=== PATIENT | female | born 1935 | race Caucasian/White ===

== ENCOUNTER → 2016-06-28 | Outpatient (CLI) | payer MEDICARE ==
[~2016-06-28] MED LIST: ACET325T49 PO; ASPI-586 PO; CALC-140 PO; CALC-654 PO; LEVO100T7 PO; [UNRECOGNIZED DRUG - OTHER] PO
--- OUTSIDE RECORDS SUMMARY | 2016-06-28 12:53 | XMS REPORT | Continuity of Care Document ---
Author Author [facility] Organization [facility] Address Unknown Phone Unavailable Care Team Providers Care Charge Preparation Technician Name Role Phone HAYLEE MARTIN MD PCP Insurance Providers Payer Name Policy Number Subscriber Name Relationship [employer] [id number] Rachel Ferris 16 Self / Same As Patient Blue Cross [facility] Supp [id number] Rachel Ferris 16 Self / Same As Patient Problems No known problems or medical conditions. Medications No known medications. Social History Social History Problem Response Recorded Date/Time Recent Foreign Travel N [place] 05/30/2014 1:02pm Hospital Discharge Instructions No hospital discharge instructions. Plan of Care No plan of care. Functional Status No functional status results. Allergies, Adverse Reactions, Alerts No known allergies. Immunizations No immunization records. Vital Signs No known vital signs results. Results Laboratory Results Test Name Result Units Flags Reference Collection Date/Time Result Date/ Time Comments White Blood Count 17.5 10^3/uL H 4.3-11.0 05/30/2014 1:15pm 05/30/2014 1: 20pm Red Blood Count 4.17 10^6/uL L 4.35-5.85 05/30/2014 1:15pm 05/30/2014 1: 20pm Hemoglobin 13.8 G/DL 11.5-16.0 05/30/2014 1:15pm 05/30/2014 1:20pm Hematocrit 42 % 35-52 05/30/2014 1:15pm 05/30/2014 1:20pm Mean Corpuscular Volume 101 FL H 80-99 05/30/2014 1:15pm 05/30/2014 1: 20pm Mean Corpuscular Hemoglobin 33 PG 25-34 05/30/2014 1:15pm 05/30/2014 1: 20pm Mean Corpuscular Hemoglobin Concent 33 G/DL 32-36 05/30/2014 1:15pm 09/2014 1:20pm Red Cell Distribution Width 13.6 % 10.0-14.5 05/30/2014 1:15pm 2014 1:20pm Platelet Count 162 10^3/uL 130-400 05/30/2014 1:15pm 05/30/2014 1:20pm Mean Platelet Volume 10.6 FL H 7.4-10.4 05/30/2014 1:15pm 05/30/2014 1: 20pm Neutrophils (%) (Auto) 23 % L 42-75 05/30/2014 1:15pm 05/30/2014 1:20pm Lymphocytes (%) (Auto) 73 % H 12-44 05/30/2014 1:15pm 05/30/2014 1:20pm Monocytes (%) (Auto) 3 % 0-12 05/30/2014 1:15pm 05/30/2014 1:20pm Eosinophils (%) (Auto) 0 % 0-10 05/30/2014 1:15pm 05/30/2014 1:20pm Basophils (%) (Auto) 0 % 0-10 05/30/2014 1:15pm 05/30/2014 1:20pm Neutrophils # (Auto) 4.1 X 10^3 1.8-7.8 05/30/2014 1:15pm 05/30/2014 1: 20pm Lymphocytes # (Auto) 12.8 X 10^3 H 1.0-4.0 05/30/2014 1:15pm 05/30/2014 1 :20pm Monocytes # (Auto) 0.5 X 10^3 0.0-1.0 05/30/2014 1:15pm 05/30/2014 1: 20pm Eosinophils # (Auto) 0.1 10^3/uL 0.0-0.3 05/30/2014 1:15pm 05/30/2014 1 :20pm Basophils # (Auto) 0.0 10^3/uL 0.0-0.1 05/30/2014 1:15pm 05/30/2014 1: 20pm Sodium Level 142 MMOL/L 135-145 05/30/2014 1:15pm 05/30/2014 1:50pm Potassium Level 4.1 MMOL/L 3.6-5.0 05/30/2014 1:15pm 05/30/2014 1:50pm Chloride Level 104 MMOL/L 98-107 05/30/2014 1:15pm 05/30/2014 1:50pm Carbon Dioxide Level 28 MMOL/L 21-32 05/30/2014 1:15pm 05/30/2014 1: 50pm Blood Urea Nitrogen 22 MG/DL H 7-18 05/30/2014 1:15pm 05/30/2014 1:50pm Creatinine 1.05 MG/DL 0.60-1.30 05/30/2014 1:15pm 05/30/2014 1:50pm BUN/Creatinine Ratio 21 05/30/2014 1:15pm 05/30/2014 1:50pm Estimat Glomerular Filtration Rate 50 05/30/2014 1:15pm 05/30/2014 1:50pm GFR INTERPRETIVE DATA UNITS FOR ESTIMATED GFR (eGFR): mL/min/1.73 M2 REFERENCE RANGE FOR ESTIMATED GFR (eGFR) eGFR NORMAL eGFR >60 MODERATELY DECREASED eGFR 30-59 SEVERLY DECREASED eGFR 15-29 KIDNEY FAILURE <15 (OR DIALYSIS) Glucose Level 130 MG/DL H 70-105 05/30/2014 1:15pm 05/30/2014 1:50pm Calcium Level 9.2 MG/DL 8.5-10.1 05/30/2014 1:15pm 05/30/2014 1:50pm Total Bilirubin 0.4 MG/DL 0.1-1.0 05/30/2014 1:15pm 05/30/2014 1:50pm Alkaline Phosphatase 83 U/L 40-136 05/30/2014 1:15pm 05/30/2014 1:50pm Aspartate Amino Transf (AST/SGOT) 20 U/L 5-34 05/30/2014 1:15pm 2014 1:50pm Alanine Aminotransferase (ALT/SGPT) 17 U/L 0-55 05/30/2014 1:15pm 05/30 1:50pm Lactate Dehydrogenase 161 U/L 125-220 05/30/2014 1:15pm 05/30/2014 1: 50pm Total Protein 5.9 G/DL L 6.4-8.2 05/30/2014 1:15pm 05/30/2014 1:50pm Albumin 4.0 G/DL 3.2-4.5 05/30/2014 1:15pm 05/30/2014 1:50pm Immunoglobulin G 443 L MG/DL 672-1680 05/30/2014 1:15pm 05/31/2014 3: 23pm Immunoglobulin A 14 L MG/DL 71-263 05/30/2014 1:15pm 05/31/2014 3: 23pm Immunoglobulin M 294 H MG/DL 47-209 05/30/2014 1:15pm 05/31/2014 3: 23pm Total Protein (PEP) 5.3 L GM/DL 6.3-8.3 06/03/2014 8:48am 06/05/2014 7 :34am Protein Electrophoresis Pathologist SEE PATH REPORT 06/03/2014 8: 48am 06/05/2014 7:34am Protein Electrophoresis Note [id number] 06/03/2014 8:48am 06/07/2014 10:40am Free Arroy[place] Light Chains, Quant 5.32 MG/L 3.30-19.40 06/03/2014 8:48am 06/07/2014 10:40am Free Lambda Light Chains, Quant 27.52 H MG/L 5.71-26.30 06/03/2014 8: 48am 06/07/2014 10:40am Free [place]roy[place]/Lambda Light Chain Ratio 0.19 L RATIO 0.26-1.65 06/03/2014 8 :48am 06/07/2014 10:40am Procedures No known history of procedures. Encounters Encounter Location Date/Time Discharged Recurring Via [facility] 06/06/14 1:16pm
--- NOTE | 2016-07-01 18:56 | Diagnostic Imaging Report ---
Right breast screening mammogram. INDICATION: Screening exam. The patient has history of left mastectomy for breast cancer. COMPARISON: 06/23/2014 and other prior exams are reviewed. The current study was also evaluated with a Computer Aided Detection (CAD) system. FINDINGS: Stable central asymmetry in the RCC projection from multiple prior studies is noted. There is also stable calcification seen. There is no developing mass, architectural distortion or suspicious calcification. IMPRESSION: Stable mammographic findings. ACR BI-RADS Category 2: Benign findings. Result letter will be mailed to the patient. Note: At least 10% of breast cancer is not imaged by mammography. Dictated by: Dictated on workstation # [id number]
== END ==
LOC: RAD 12:50
PROVIDERS: ATTEND Internal Medicine Hematology & Oncology
DX: Z12.31 Encounter for screening mammogram for malignant neoplasm of breast (principal); C50.912 Malignant neoplasm of unspecified site of left female breast

== ENCOUNTER 2016-07-30 12:57 | Outpatient (RCR) | payer MEDICARE ==
--- OUTSIDE RECORDS SUMMARY | 2016-07-26 09:44 | XMS REPORT | Continuity of Care Document ---
Author Author [facility] Organization [facility] Address Unknown Phone Unavailable Care Team Providers Care Computer Game Programmer Name Role Phone HAYLEE MARTIN MD PCP Insurance Providers Payer Name Policy Number Subscriber Name Relationship [employer] [id number] Rachel Ferris 16 Self / Same As Patient Blue Cross [facility] Supp [id number] Rachel Ferris 16 Self / Same As [...] 8: 48am 06/05/2014 7:34am Protein Electrophoresis Note [id number] 06/03/2014 8:48am 06/07/2014 10:40am Free [place] Light Chains, Quant 5.32 MG/L 3.30-19.40 06/03/2014 8:48am 06/07/2014 10:40am Free Lambda Light Chains, Quant 27.52 H MG/L 5.71-26.30 06/03/2014 8: 48am 06/07/2014 10:40am Free [place]/Lambda Light Chain Ratio 0.19 L RATIO 0.26-1.65 06/03/2014 8 :48am 06/07/2014 10:40am Procedures No known history of procedures. Encounters Encounter Location Date/Time Discharged Recurring Via [facility] 06/06/14 1:16pm
[2016-07-26 09:49] LABS: BASOPHILS % (AUTO) 0 % (0-10); EOSINOPHILS # (AUTO) 0.1 10^3/uL (0.0-0.3); EOSINOPHILS % (AUTO) 1 % (0-10); LYMPHOCYTES # (AUTO) 14.1 X 10^3 (1.0-4.0); LYMPHOCYTES % (AUTO) 78 % (12-44); MEAN CORPUSCULAR HEMOGLOBIN 34 PG (25-34); MEAN CORPUSCULAR HGB CONC 34 G/DL (32-36); MEAN CORPUSCULAR VOLUME 100 FL (80-99); MEAN PLATELET VOLUME 10.6 FL (7.4-10.4); MONOCYTES # (AUTO) 0.4 X 10^3 (0.0-1.0); MONOCYTES % (AUTO) 2 % (0-12); NEUTROPHILS # (AUTO) 3.5 X 10^3 (1.8-7.8); NEUTROPHILS % (AUTO) 19 % (42-75); PLATELET COUNT 172 10^3/uL (130-400); RED BLOOD COUNT 4.36 10^6/uL (4.35-5.85); RED CELL DISTRIBUTION WIDTH 13.3 % (10.0-14.5); WHITE BLOOD COUNT 18.1 10^3/uL (4.3-11.0)
[2016-07-26 10:05] LABS: BILIRUBIN,TOTAL 0.4 MG/DL (0.1-1.0); CALCIUM 8.6 MG/DL (8.5-10.1); CREATININE SERUM 0.92 MG/DL (0.60-1.30); POTASSIUM 4.9 MMOL/L (3.6-5.0); TOTAL PROTEIN 5.8 G/DL (6.4-8.2)
[2016-07-27 06:56] LABS: IMMUNOGLOBULIN IGA 10 mg/dL (71-263); IMMUNOGLOBULIN IGG 415 mg/dL (672-1680)
[2016-07-29 08:00] LABS: IMMUNOGLOBULIN IGM <10 mg/dL (47-209)
== END 2016-10-24 | disposition home or self-care (01) ==
LOC: ONC 12:57
PROVIDERS: ATTEND Internal Medicine Hematology & Oncology
DX: C91.10 Chronic lymphocytic leukemia of B-cell type not having achieved remission (principal); Z85.3 Personal history of malignant neoplasm of breast; E03.9 Hypothyroidism, unspecified; M81.0 Age-related osteoporosis without current pathological fracture; Z79.899 Other long term (current) drug therapy
CPT/HCPCS: 36415; 80053; 82784; 83615; 85025; 99213

== ENCOUNTER → 2017-01-31 | Outpatient (CLI) | payer MEDICARE | LOC: LAB 10:53 | PROVIDERS: ATTEND Family Medicine | DX: E03.9 Hypothyroidism, unspecified (principal); Z79.899 Other long term (current) drug therapy | CPT/HCPCS: 82306 ==

== ENCOUNTER 2017-02-12 09:15 | Outpatient (RCR) | payer MEDICARE ==
[2017-01-31 11:12] LABS: EOSINOPHILS % (AUTO) 0 % (0-10); LYMPHOCYTES % (AUTO) 76 % (12-44); MEAN CORPUSCULAR HEMOGLOBIN 34 PG (25-34); MEAN CORPUSCULAR HGB CONC 35 G/DL (32-36); MEAN CORPUSCULAR VOLUME 98 FL (80-99); MEAN PLATELET VOLUME 10.9 FL (7.4-10.4); MONOCYTES % (AUTO) 3 % (0-12); NEUTROPHILS % (AUTO) 21 % (42-75); PLATELET COUNT 159 10^3/uL (130-400); RED BLOOD COUNT 4.19 10^6/uL (4.35-5.85); RED CELL DISTRIBUTION WIDTH 13.2 % (10.0-14.5); WHITE BLOOD COUNT 18.2 10^3/uL (4.3-11.0)
[2017-01-31 11:13] LABS: BASOPHILS % (AUTO) 0 % (0-10); EOSINOPHILS # (AUTO) 0.1 10^3/uL (0.0-0.3); LYMPHOCYTES # (AUTO) 13.8 X 10^3 (1.0-4.0); MONOCYTES # (AUTO) 0.6 X 10^3 (0.0-1.0); NEUTROPHILS # (AUTO) 3.7 X 10^3 (1.8-7.8)
[2017-01-31 11:38] LABS: BILIRUBIN,TOTAL 0.7 MG/DL (0.1-1.0); CALCIUM 8.7 MG/DL (8.5-10.1); CREATININE SERUM 0.99 MG/DL (0.60-1.30); POTASSIUM 4.5 MMOL/L (3.6-5.0); TOTAL PROTEIN 5.7 GM/DL (6.4-8.2)
[2017-02-01 02:29] LABS: IMMUNOGLOBULIN IGA 11 mg/dL (71-263); IMMUNOGLOBULIN IGG 397 mg/dL (672-1680)
[2017-02-03 07:59] LABS: IMMUNOGLOBULIN IGM 21 mg/dL (47-209)
== END 2017-02-22 | disposition home or self-care (01) ==
LOC: ONC 09:15
PROVIDERS: ATTEND Internal Medicine Hematology & Oncology
DX: C91.10 Chronic lymphocytic leukemia of B-cell type not having achieved remission (principal); Z85.3 Personal history of malignant neoplasm of breast; E03.9 Hypothyroidism, unspecified; M81.0 Age-related osteoporosis without current pathological fracture; Z79.899 Other long term (current) drug therapy
CPT/HCPCS: 36415; 80053; 82784; 83615; 85025

== ENCOUNTER → 2017-07-10 | Outpatient (CLI) | payer MEDICARE ==
--- NOTE | 2017-07-10 12:57 | Diagnostic Imaging Report ---
INDICATION: Routine screening. COMPARISON: Comparison is made with prior mammogram from 06/28/2016 and 06/27/2015. The current study was also evaluated with a Computer Aided Detection (CAD) system. FINDINGS: Scattered fibroglandular densities in the right breast are noted. Previously noted focal nodular density in the central right breast on the CC view appears stable over several years. No new mass or malignant appearing microcalcifications are seen. There are some mildly prominent lymph nodes in the right axilla, indeterminate. These were not definitely seen on prior mammograms. IMPRESSION: No suspicious abnormality is seen apart from some mildly prominent lymph nodes in the right axilla. Right axillary ultrasound is recommended for further evaluation. ACR BI-RADS Category 0: Incomplete. (Needs additional imaging evaluation). Result letter will be mailed to the patient. Note: At least 10% of breast cancer is not imaged by mammography. Dictated by: Dictated on workstation # [id number]
== END ==
LOC: RAD 09:22
PROVIDERS: ATTEND Internal Medicine Hematology & Oncology
DX: Z12.31 Encounter for screening mammogram for malignant neoplasm of breast (principal); Z85.3 Personal history of malignant neoplasm of breast

== ENCOUNTER → 2017-07-25 | Outpatient (CLI) | payer MEDICARE ==
--- NOTE | 2017-07-25 14:54 | Diagnostic Imaging Report ---
INDICATION: Prominent right axillary lymph nodes noted on a recent mammogram. This study is performed for further evaluation. COMPARISON: Screening mammogram from 07/10/2017. FINDINGS: Sonographic interrogation of the right axilla was performed. Three lymph nodes are identified. The largest lymph node measures 2.5 x 1.1 x 0.6 cm. This appears to be primarily fatty and does demonstrate a thin overlying cortex. A second lymph node measures 1.3 x 0.7 x 1.3 cm. The other lymph node is 1.2 x 0.6 x 1.2 cm. No other abnormalities are identified. IMPRESSION: Right axillary lymph nodes which contain a fatty aracelis and thin overlying cortex. No definite suspicious abnormality is identified. ACR BI-RADS Category 2: Benign findings. Dictated by: Dictated on workstation # [id number]
== END ==
LOC: RAD 10:07
PROVIDERS: ATTEND Internal Medicine Hematology & Oncology
DX: R92.8 Other abnormal and inconclusive findings on diagnostic imaging of breast (principal)

== ENCOUNTER → 2017-08-14 | Outpatient (CLI) | payer MEDICARE ==
[2017-08-14 09:48] LABS: FREE T4 (FREE THYROXINE) 1.21 NG/DL (0.70-1.48)
== END ==
LOC: LAB 08:52
PROVIDERS: ATTEND Family Medicine
DX: E03.9 Hypothyroidism, unspecified (principal); Z79.899 Other long term (current) drug therapy
CPT/HCPCS: 36415; 80061; 84439; 84443

== ENCOUNTER 2017-08-21 08:51 | Outpatient (RCR) | payer MEDICARE ==
[2017-08-14 09:05] LABS: BASOPHILS % (AUTO) 0 % (0-10); EOSINOPHILS # (AUTO) 0.1 10^3/uL (0.0-0.3); EOSINOPHILS % (AUTO) 1 % (0-10); HEMATOCRIT 44 % (35-52); HEMOGLOBIN 14.7 G/DL (11.5-16.0); LYMPHOCYTES # (AUTO) 12.8 X 10^3 (1.0-4.0); LYMPHOCYTES % (AUTO) 81 % (12-44); MEAN CORPUSCULAR HEMOGLOBIN 34 PG (25-34); MEAN CORPUSCULAR HGB CONC 34 G/DL (32-36); MEAN CORPUSCULAR VOLUME 101 FL (80-99); MEAN PLATELET VOLUME 10.9 FL (7.4-10.4); MONOCYTES # (AUTO) 0.2 X 10^3 (0.0-1.0); MONOCYTES % (AUTO) 1 % (0-12); NEUTROPHILS # (AUTO) 2.6 X 10^3 (1.8-7.8); NEUTROPHILS % (AUTO) 17 % (42-75); PLATELET COUNT 138 10^3/uL (130-400); RED BLOOD COUNT 4.32 10^6/uL (4.35-5.85); RED CELL DISTRIBUTION WIDTH 13.3 % (10.0-14.5); WHITE BLOOD COUNT 15.8 10^3/uL (4.3-11.0)
[2017-08-14 09:25] LABS: BILIRUBIN,TOTAL 0.9 MG/DL (0.1-1.0); CALCIUM 9.1 MG/DL (8.5-10.1); CREATININE SERUM 1.05 MG/DL (0.60-1.30); POTASSIUM 4.4 MMOL/L (3.6-5.0); TOTAL PROTEIN 5.6 GM/DL (6.4-8.2)
== END 2017-11-12 | disposition home or self-care (01) ==
LOC: ONC 08:51
PROVIDERS: ATTEND Internal Medicine Hematology & Oncology
DX: C91.10 Chronic lymphocytic leukemia of B-cell type not having achieved remission (principal); D80.1 Nonfamilial hypogammaglobulinemia; Z85.3 Personal history of malignant neoplasm of breast; E03.9 Hypothyroidism, unspecified; M81.0 Age-related osteoporosis without current pathological fracture; Z79.899 Other long term (current) drug therapy
CPT/HCPCS: 80053; 82784; 85025; 99213

== ENCOUNTER → 2018-02-12 | Outpatient (CLI) | payer MEDICARE ==
[2018-02-12 15:04] LABS: FREE T4 (FREE THYROXINE) 1.18 NG/DL (0.70-1.48)
== END ==
LOC: LAB 13:43
PROVIDERS: ATTEND Family Medicine
DX: E03.9 Hypothyroidism, unspecified (principal)
CPT/HCPCS: 36415; 84439; 84443

== ENCOUNTER 2018-02-19 08:50 | Outpatient (RCR) | payer MEDICARE ==
[2018-02-12 14:00] LABS: BASOPHILS % (AUTO) 0 % (0-10); EOSINOPHILS # (AUTO) 0.1 10^3/uL (0.0-0.3); EOSINOPHILS % (AUTO) 1 % (0-10); HEMATOCRIT 40 % (35-52); HEMOGLOBIN 13.8 G/DL (11.5-16.0); LYMPHOCYTES # (AUTO) 13.9 X 10^3 (1.0-4.0); LYMPHOCYTES % (AUTO) 72 % (12-44); MEAN CORPUSCULAR HEMOGLOBIN 34 PG (25-34); MEAN CORPUSCULAR HGB CONC 35 G/DL (32-36); MEAN CORPUSCULAR VOLUME 100 FL (80-99); MEAN PLATELET VOLUME 11.1 FL (7.4-10.4); MONOCYTES # (AUTO) 0.5 X 10^3 (0.0-1.0); MONOCYTES % (AUTO) 2 % (0-12); NEUTROPHILS # (AUTO) 4.8 X 10^3 (1.8-7.8); NEUTROPHILS % (AUTO) 25 % (42-75); PLATELET COUNT 158 10^3/uL (130-400); RED BLOOD COUNT 4.02 10^6/uL (4.35-5.85); RED CELL DISTRIBUTION WIDTH 13.4 % (10.0-14.5); WHITE BLOOD COUNT 19.3 10^3/uL (4.3-11.0)
[2018-02-12 14:44] LABS: BILIRUBIN,TOTAL 0.6 MG/DL (0.1-1.0); CALCIUM 9.3 MG/DL (8.5-10.1); CREATININE SERUM 1.23 MG/DL (0.60-1.30); TOTAL PROTEIN 5.5 GM/DL (6.4-8.2)
== END 2018-02-22 | disposition home or self-care (01) ==
LOC: ONC 08:50
PROVIDERS: ATTEND Internal Medicine Hematology & Oncology
DX: C91.10 Chronic lymphocytic leukemia of B-cell type not having achieved remission (principal); Z85.3 Personal history of malignant neoplasm of breast; E03.9 Hypothyroidism, unspecified; M81.0 Age-related osteoporosis without current pathological fracture; Z79.899 Other long term (current) drug therapy
CPT/HCPCS: 36415; 80053; 82784; 85025; 99213

== ENCOUNTER → 2018-04-06 | Outpatient (CLI) | payer MEDICARE ==
--- NOTE | 2018-04-06 10:31 | Diagnostic Imaging Report ---
INDICATION: Left hip discomfort for 4 weeks. Time of exam 10:33 a.m. FINDINGS: Two views of the left hip demonstrate normal femoral acetabular alignment. The joint spaces are well-maintained. The femoral head and neck are intact. No fractures are seen. IMPRESSION: No acute bony abnormality is detected. Dictated by: Dictated on workstation # [id number]
== END ==
LOC: RAD 09:58
PROVIDERS: ATTEND Family Medicine
DX: M25.552 Pain in left hip (principal)
CPT/HCPCS: 73502

== ENCOUNTER → 2018-04-30 | Outpatient (CLI) | payer MEDICARE ==
--- NOTE | 2018-04-30 17:05 | Diagnostic Imaging Report ---
EXAMINATION: Thoracic spine. INDICATION: Back pain. FINDINGS: AP, lateral, and swimmer's views were obtained. The previous MRI thoracic spine exam of 10/27/2015 noted compression fractures of T4 and T11. Those fractures are again evident and no different. In the interval since the previous exam, however, a mild 10-20% compression deformity of the vertebral body of T7 has developed. The age of this injury is indeterminate and this could be acute or subacute in nature. If further imaging is desired, then a repeat MRI lumbar spine exam should be obtained. There is no acute bony abnormality appreciated otherwise. 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 There is no sign of a paraspinal mass. IMPRESSION: 1. In the interval since the prior study, a mild compression deformity of T7 has developed. The age of this injury is indeterminate, but this could be acute or subacute in nature. Recommendations as above. 2. There is no acute bony abnormality noted otherwise. The compression fractures of T4 and T11 seen previously appear stable. Dictated by: Dictated on workstation # [id number]
--- NOTE | 2018-04-30 17:21 | Diagnostic Imaging Report ---
EXAMINATION: Lumbar spine. INDICATION: Back pain. FINDINGS: AP and lateral views were obtained. The prior exam of 10/24/2015 noted compression fractures of every lumbar vertebral body except for L4 and L5. On this study, the compression deformities of L1, L2, and L3 seem similar to the prior exam. However, there may be slightly greater loss of height of the vertebral body of L4. This could be secondary to an acute/subacute compression deformity. I would recommend that MRI be performed for further study. The L5 vertebral body seems stable. The degenerative disc disease at the L4-L5 and L5-S1 levels noted on the prior exam does not appear to have progressed. There is no sign of a paraspinal mass. There is moderate sclerosis of the sacroiliac joints. IMPRESSION: 1. In the interval since the prior exam, there has been a slight loss of height of the vertebral body of L4. This could be related to an acute/subacute compression fracture. Recommendations as above. 2. The overall appearance of the lumbar spine is otherwise stable. Dictated by: Dictated on workstation # [id number]
== END ==
LOC: RAD 13:35
PROVIDERS: ATTEND Nurse Practitioner Family
DX: S22.040A Wedge compression fracture of fourth thoracic vertebra, initial encounter for closed fracture (principal); S22.080A Wedge compression fracture of T11-T12 vertebra, initial encounter for closed fracture; M43.8X4 Other specified deforming dorsopathies, thoracic region; M54.5 Low back pain
CPT/HCPCS: 72072; 72100

== ENCOUNTER → 2018-05-05 | Outpatient (CLI) | payer MEDICARE ==
--- NOTE | 2018-05-05 14:42 | Diagnostic Imaging Report ---
EXAMINATION: MRI thoracic spine without contrast. INDICATION: Back pain. TECHNIQUE: Multiplanar images utilizing both T1 and T2-weighted sequences were obtained. FINDINGS: The previous MRI thoracic spine exam performed on 10/27/2015 noted long-standing compression deformities of T4 and T11 as well as a subacute compression deformity of the inferior endplate of L1. Those compression deformities are again evident and do not seem to have changed significantly. The plain film examination of the thoracic spine performed on 04/30/2018 did suggest a mild compression deformity of T7. On this study, there is a 40-50% loss of height of the T7 vertebral body when compared to the prior exam and there is diffusely abnormal signal throughout the vertebral body. This appearance would be consistent with a subacute compression fracture. There is no sign of a retropulsed fragment at this level and there does not appear to be any significant central stenosis. The degenerative disc and bony disease involving the thoracic spine seen on the prior study does not appear to have progressed. There is no new area of high-grade central stenosis. There is no abnormal signal arising from the cord. There is no paraspinal mass visualized. The lungs where imaged are generally clear. IMPRESSION: 1. In the interval since the prior study, a 40-50% subacute compression fracture of T7 has developed. There is no acute bony abnormality noted otherwise. 2. The compression deformities involving T4 and T11 seen previously appear stable. The L1 compression fracture is also unchanged. MRI of the lumbar spine is pending for further study. 3. There is degenerative disc and bony disease throughout the thoracic spine, but there is no evidence for a high-grade central stenosis or neuroforaminal narrowing. 4. These results were called to Sisi Cooney APRN. Dictated by: Dictated on workstation # [id number]
--- NOTE | 2018-05-05 16:29 | Diagnostic Imaging Report ---
PROCEDURE: MRI lumbar spine. TECHNIQUE: Multiplanar, multisequence MRI of the lumbar spine was performed without contrast. INDICATION: Back pain. FINDINGS: The previous MRI of the lumbar spine exam of 10/27/2015 noted subacute compression fractures of L1 and L2. There was also mild compression deformity of L3. The plain film exam of 04/30/2018 also raised the question of a slight loss of height of the vertebral body of L4. The age of this mild compression fracture is indeterminate however. On this study, there is a mild loss of height of the L4 vertebral body when compared to the previous MRI in 2016. However, there is no abnormal signal arising from L4 to suggest that this injury is acute or subacute in nature. The remainder of the lumbar spine is unremarkable for an acute injury as well. However the axial images do show an irregular area of diminished signal extending through the sacral promontory on the left. I do suspect that this represents a fracture. This could be related to an insufficiency type injury. The previous MRI of the lumbar spine exam did note trefoil stenosis at L4-5 with narrowing of the neural foramen bilaterally at this level. Those findings are again evident and do not seem to have progress. There is also trefoil stenosis but to a lesser degree at L3-4. There is neural foraminal narrowing at this level as well. This level also seems similar to the prior exam. There is also trefoil stenosis at L2-3 with mild neural foraminal narrowing bilaterally. There is no evidence for spinal stenosis at L1-2 or L5-S1. There is narrowing of the neural foramen bilaterally at L5, particularly on the left. There is no abnormal signal arising from the cord itself. There is no sign of a paraspinal mass. IMPRESSION: 1. There are long-standing compression deformities involving L1, L2, L3 and L4. There is no acute bony abnormality of the lumbar spine identified however. 2. There does appear to be a fracture of the left sacral promontory. This may represent an insufficiency fracture. Sacroplasty should be considered for further evaluation. 3. The degenerative disc, ligamentous and bony disease throughout the lumbar spine seen previously has not progressed significantly. 4. The results were discussed with Sisi Cooney APRN. Dictated by: Dictated on workstation # [id number]
== END ==
LOC: RAD 13:05
PROVIDERS: ATTEND Nurse Practitioner Family
DX: S22.060A Wedge compression fracture of T7-T8 vertebra, initial encounter for closed fracture (principal); S32.010A Wedge compression fracture of first lumbar vertebra, initial encounter for closed fracture; M51.34 Other intervertebral disc degeneration, thoracic region; M51.36 Other intervertebral disc degeneration, lumbar region; M89.9 Disorder of bone, unspecified
CPT/HCPCS: 72146; 72148

== ENCOUNTER → 2018-05-28 | Outpatient (CLI) | payer MEDICARE ==
--- NOTE | 2018-05-28 14:58 | Diagnostic Imaging Report ---
PROCEDURE: MRI lumbar spine. TECHNIQUE: Multiplanar, multisequence MRI of the lumbar spine was performed without contrast. INDICATION: Low back pain. COMPARISON: Lumbar spine MRI without contrast 05/05/2018. FINDINGS: There are five lumbar type vertebral bodies for the purposes of this report. Grade 1 retrolisthesis of L1 on L2. Alignment is otherwise unremarkable. Moderate to advanced diffuse degenerative endplate changes. This results in concave height loss at the inferior endplate of L1 without edema. There is also anterior wedging of T11. Bone marrow signal is otherwise unremarkable. No abnormal signal in the conus which terminates at L1-L2. Normal morphology of the cauda equina. The visualized abdominal and pelvic contents are unremarkable. L1-L2: Posterior disc osteophyte complex combines with ligamentous hypertrophy to result in moderate spinal canal and bilateral lateral recess narrowing. There is advanced bilateral neural foraminal narrowing. L2-L3: Small broad-based disc bulge and ligamentous hypertrophy results in moderate spinal canal narrowing. There is moderate bilateral neural foraminal narrowing. L3-L4: Posterior disc osteophyte complex, ligamentous hypertrophy and facet arthropathy results in moderate spinal canal narrowing. There is advanced bilateral neural foraminal narrowing. L4-L5: Broad-based disc bulge, ligamentous hypertrophy and facet arthropathy result in moderate spinal canal and bilateral lateral recess narrowing. There is advanced right and moderate left neural foraminal narrowing. L5-S1: No substantial spinal canal narrowing. There is advanced left and moderate right neural foraminal narrowing. IMPRESSION: 1. Diffuse spondylotic changes result in multilevel moderate spinal canal narrowing including L1-L2, L2-L3, L3-L4 and L4-L5. 2. Diffuse moderate and advanced neural foraminal narrowing detailed above level by level. 3. No acute osseous findings. Dictated by: Dictated on workstation # [id number]
== END ==
LOC: RAD 13:46
PROVIDERS: ATTEND Orthopaedic Surgery Orthopaedic Surgery of the Spine
DX: M47.816 Spondylosis without myelopathy or radiculopathy, lumbar region (principal); M48.07 Spinal stenosis, lumbosacral region; M51.26 Other intervertebral disc displacement, lumbar region; M46.86 Other specified inflammatory spondylopathies, lumbar region; M25.78 Osteophyte, vertebrae; M43.16 Spondylolisthesis, lumbar region; M51.36 Other intervertebral disc degeneration, lumbar region
CPT/HCPCS: 72148

== ENCOUNTER → 2018-07-15 | Outpatient (CLI) | payer MEDICARE ==
--- NOTE | 2018-07-15 13:55 | Diagnostic Imaging Report ---
INDICATION: Left breast carcinoma. CORRELATION is made with prior mammogram from 07/10/2017. TECHNIQUE: Unilateral right 2-D and 3-D diagnostic mammography was performed with CAD. FINDINGS: Scattered fibroglandular densities in the right breast are noted. Circumscribed benign-appearing nodule in the upper central right breast appears stable. No new mass or malignant-appearing micro-calcifications are seen. There are benign calcifications present. The right axilla is unremarkable. IMPRESSION: BI-RADS category 2. No mammographic features suspicious for malignancy are identified. ACR BI-RADS Category 2: Benign findings. Result letter will be mailed to the patient. Note: At least 10% of breast cancer is not imaged by mammography. Dictated by: Dictated on workstation # [id number]
== END ==
LOC: RAD 12:46
PROVIDERS: ATTEND Internal Medicine Hematology & Oncology
DX: C50.812 Malignant neoplasm of overlapping sites of left female breast (principal)

== ENCOUNTER 2018-07-16 13:27 | Outpatient (RCR) | payer MEDICARE | END 2018-07-16 13:40 | disposition home or self-care (01) | PROVIDERS: ATTEND Orthopaedic Surgery Orthopaedic Surgery of the Spine | DX: M54.5 Low back pain (principal) ==

== ENCOUNTER → 2019-01-28 | Outpatient (CLI) | payer MEDICARE ==
[2019-01-28 11:11] LABS: ALBUMIN 4.1 GM/DL (3.2-4.5); BILIRUBIN,TOTAL 0.6 MG/DL (0.1-1.0); CALCIUM 9.2 MG/DL (8.5-10.1); CREATININE SERUM 1.09 MG/DL (0.60-1.30); POTASSIUM 4.4 MMOL/L (3.6-5.0)
[2019-01-28 11:32] LABS: FREE T4 (FREE THYROXINE) 1.25 NG/DL (0.70-1.48)
== END ==
LOC: LAB 10:33
PROVIDERS: ATTEND Family Medicine
DX: Z01.89 Encounter for other specified special examinations (principal)
CPT/HCPCS: 36415; 80053; 82306; 84439; 84443

== ENCOUNTER 2019-02-04 08:49 | Outpatient (RCR) | payer MEDICARE ==
[2019-01-28 10:52] LABS: BASOPHILS % (AUTO) 0 % (0-10); EOSINOPHILS # (AUTO) 0.1 10^3/uL (0.0-0.3); EOSINOPHILS % (AUTO) 0 % (0-10); HEMATOCRIT 43 % (35-52); HEMOGLOBIN 14.1 G/DL (11.5-16.0); LYMPHOCYTES # (AUTO) 13.3 X 10^3 (1.0-4.0); LYMPHOCYTES % (AUTO) 76 % (12-44); MEAN CORPUSCULAR HEMOGLOBIN 34 PG (25-34); MEAN CORPUSCULAR HGB CONC 33 G/DL (32-36); MEAN CORPUSCULAR VOLUME 102 FL (80-99); MEAN PLATELET VOLUME 10.7 FL (7.4-10.4); MONOCYTES # (AUTO) 0.3 X 10^3 (0.0-1.0); MONOCYTES % (AUTO) 1 % (0-12); NEUTROPHILS # (AUTO) 3.8 X 10^3 (1.8-7.8); NEUTROPHILS % (AUTO) 22 % (42-75); PLATELET COUNT 176 10^3/uL (130-400); RED CELL DISTRIBUTION WIDTH 13.8 % (10.0-14.5); WHITE BLOOD COUNT 17.5 10^3/uL (4.3-11.0)
[2019-01-28 11:13] LABS: ALBUMIN 4.1 GM/DL (3.2-4.5); BILIRUBIN,TOTAL 0.6 MG/DL (0.1-1.0); CALCIUM 9.1 MG/DL (8.5-10.1); CREATININE SERUM 1.07 MG/DL (0.60-1.30); POTASSIUM 4.4 MMOL/L (3.6-5.0); TOTAL PROTEIN 5.9 GM/DL (6.4-8.2)
== END 2019-04-28 | disposition home or self-care (01) ==
LOC: ONC 08:49
PROVIDERS: ATTEND Internal Medicine Hematology & Oncology
DX: C91.10 Chronic lymphocytic leukemia of B-cell type not having achieved remission (principal); Z85.3 Personal history of malignant neoplasm of breast; E03.9 Hypothyroidism, unspecified; M81.0 Age-related osteoporosis without current pathological fracture; Z79.899 Other long term (current) drug therapy
CPT/HCPCS: 36415; 80053; 82784; 85025; 99213

== ENCOUNTER → 2019-07-15 | Outpatient (CLI) | payer MEDICARE ==
--- NOTE | 2019-07-16 11:38 | Diagnostic Imaging Report ---
EXAM: Diagnostic right mammogram INDICATION: Carcinoma of the left breast COMPARISON: This study was compared to the prior exams of 07/15/2018, 07/10/2017 and 06/28/2016. There are no current complaints. The fibroglandular tissue in the right breast is heterogeneously dense. This does limit the sensitivity of this exam. The small benign-appearing nodular density in the midportion of the breast seen in the craniocaudal view of the previous exams is again evident and no different. This finding is difficult to appreciate on the MLO view. When compared to the previous studies, there does not appear to have been any significant change. There are still a few prominent lymph nodes visible in the right axilla. There is no primary or secondary sign of malignancy noted. IMPRESSION: There is no evidence for malignancy. ACR category 1 ACR BI-RADS Category 1: Negative. Result letter will be mailed to the patient. Note: At least 10% of breast cancer is not imaged by mammography. Dictated by: Dictated on workstation # [id number]
== END ==
LOC: RAD 09:20
PROVIDERS: ATTEND Internal Medicine Hematology & Oncology
DX: C50.812 Malignant neoplasm of overlapping sites of left female breast (principal)

== ENCOUNTER 2019-08-05 09:00 | Outpatient (RCR) | payer MEDICARE ==
[2019-07-29 09:55] LABS: BASOPHILS % (AUTO) 0 % (0-10); EOSINOPHILS # (AUTO) 0.1 10^3/uL (0.0-0.3); EOSINOPHILS % (AUTO) 1 % (0-10); HEMATOCRIT 42 % (35-52); HEMOGLOBIN 13.7 G/DL (11.5-16.0); LYMPHOCYTES # (AUTO) 10.3 X 10^3 (1.0-4.0); LYMPHOCYTES % (AUTO) 77 % (12-44); MEAN CORPUSCULAR HEMOGLOBIN 34 PG (25-34); MEAN CORPUSCULAR HGB CONC 33 G/DL (32-36); MEAN CORPUSCULAR VOLUME 103 FL (80-99); MEAN PLATELET VOLUME 11.3 FL (7.4-10.4); MONOCYTES # (AUTO) 0.3 X 10^3 (0.0-1.0); MONOCYTES % (AUTO) 2 % (0-12); NEUTROPHILS # (AUTO) 2.7 X 10^3 (1.8-7.8); NEUTROPHILS % (AUTO) 20 % (42-75); PLATELET COUNT 134 10^3/uL (130-400); RED CELL DISTRIBUTION WIDTH 13.5 % (10.0-14.5); WHITE BLOOD COUNT 13.4 10^3/uL (4.3-11.0)
[2019-07-29 10:16] LABS: ALBUMIN 3.7 GM/DL (3.2-4.5); BILIRUBIN,TOTAL 0.5 MG/DL (0.1-1.0); CALCIUM 8.6 MG/DL (8.5-10.1); CREATININE SERUM 1.01 MG/DL (0.60-1.30); TOTAL PROTEIN 5.3 GM/DL (6.4-8.2)
== END 2019-10-27 | disposition home or self-care (01) ==
LOC: ONC 09:00
PROVIDERS: ATTEND Internal Medicine Hematology & Oncology
DX: C91.10 Chronic lymphocytic leukemia of B-cell type not having achieved remission (principal); C50.812 Malignant neoplasm of overlapping sites of left female breast; D83.8 Other common variable immunodeficiencies; M81.0 Age-related osteoporosis without current pathological fracture; E03.9 Hypothyroidism, unspecified; D80.1 Nonfamilial hypogammaglobulinemia; Z98.890 Other specified postprocedural states
CPT/HCPCS: 80053; 82784; 85025; 99213

== ENCOUNTER → 2019-11-16 | Outpatient (CLI) | payer MEDICARE ==
--- NOTE | 2019-11-16 14:06 | Diagnostic Imaging Report ---
INDICATION: Postmenopausal female. COMPARISON: 01/08/2002. FINDINGS: AP Spine L1-L4: [BMD (g/cm2): 0.894] [T-Score: -2.6] [Z-Score: -0.4] [BMD Previous: 0.928] [BMD % Change: -3.7] LT Hip Neck: [BMD (g/cm2): 0.682] [T-Score: -2.6] [Z-Score: 0.0] LT Hip Total: [BMD (g/cm2):0.625] [T-Score:-3.0] [Z-Score: -0.5] [BMD Previous: 0.774] [BMD % Change: -11.9] RT Hip Neck: [BMD (g/cm2):NA] [T-Score:NA] [Z-Score:NA] RT Hip Total: [BMD (g/cm2):NA] [T-score:NA] [Z-Score:NA] [BMD Previous:NA] [BMD % Change:NA] World Health Organization criteria for BMD interpretation classify patients as Normal (T-score at or above -1.0), Osteopenic (T-score between -1.0 and -2.5) or Osteoporotic (T-score at or below -2.5). LIMITATIONS AND MODIFICATION: The right hip was not evaluated due to hardware. FRACTURE RISK (FRAX SCORE): The ten year probability of (%): Major Osteoporotic Fracture: [NA] Hip Fracture: [NA] IMPRESSION: 1. Osteoporosis. 2. Bone mineral density has decreased by a statistically significant amount, as detailed above. 3. See below National Osteoporosis Foundation guidelines on when to potentially initiate pharmacologic therapy. Based on the National Osteoporosis Foundation Guidelines, pharmacologic treatment should be initiated in any of the following, unless clinical conditions suggest otherwise: * Any patient with prior fragility fracture of the hip or vertebrae. A spine fracture indicates 5X risk for subsequent spine fracture and 2X risk for subsequent hip fracture. * Osteoporosis (T-score <-2.5). * Postmenopausal women and men age 50 and older with low bone mass/osteopenia (T-score between -1.0 and -2.5) by DXA and 10-year major osteoporotic fracture greater than 20% or a 10-year probability of hip fracture greater than 3%. These fracture risks are supplied above in the FRAX score, if applicable. * Clinician judgement and/or patient preferences may indicate treatment for people with 10-year fracture probabilities above or below these levels. Dictated by: Dictated on workstation # [id number]
== END ==
LOC: RAD 08:59
PROVIDERS: ATTEND Family Medicine
DX: M81.0 Age-related osteoporosis without current pathological fracture (principal); Z78.0 Asymptomatic menopausal state
CPT/HCPCS: 77080

== ENCOUNTER 2020-02-10 08:57 | Outpatient (RCR) | payer MEDICARE ==
[2020-02-03 09:31] LABS: BASOPHILS % (AUTO) 0 % (0-10); EOSINOPHILS # (AUTO) 0.1 10^3/uL (0.0-0.3); EOSINOPHILS % (AUTO) 0 % (0-10); HEMATOCRIT 41 % (35-52); HEMOGLOBIN 13.7 G/DL (11.5-16.0); LYMPHOCYTES % (AUTO) 77 % (12-44); MEAN CORPUSCULAR HEMOGLOBIN 35 PG (25-34); MEAN CORPUSCULAR HGB CONC 33 G/DL (32-36); MEAN CORPUSCULAR VOLUME 104 FL (80-99); MEAN PLATELET VOLUME 10.8 FL (7.4-10.4); MONOCYTES # (AUTO) 0.3 X 10^3 (0.0-1.0); MONOCYTES % (AUTO) 2 % (0-12); NEUTROPHILS % (AUTO) 21 % (42-75); PLATELET COUNT 138 10^3/uL (130-400); WHITE BLOOD COUNT 14.3 10^3/uL (4.3-11.0)
[2020-02-03 09:50] LABS: ALBUMIN 3.7 GM/DL (3.2-4.5); BILIRUBIN,TOTAL 0.6 MG/DL (0.1-1.0); CALCIUM 8.5 MG/DL (8.5-10.1); CREATININE SERUM 1.13 MG/DL (0.60-1.30); POTASSIUM 4.7 MMOL/L (3.6-5.0); TOTAL PROTEIN 5.4 GM/DL (6.4-8.2)
== END 2020-05-03 | disposition home or self-care (01) ==
LOC: ONC 08:57
PROVIDERS: ATTEND Internal Medicine Hematology & Oncology
DX: C50.812 Malignant neoplasm of overlapping sites of left female breast (principal); C91.10 Chronic lymphocytic leukemia of B-cell type not having achieved remission; D83.8 Other common variable immunodeficiencies; E03.8 Other specified hypothyroidism; M81.0 Age-related osteoporosis without current pathological fracture
CPT/HCPCS: 80053; 82784; 85025; 99213

== ENCOUNTER → 2020-06-30 | Outpatient (CLI) | payer MEDICARE ==
--- NOTE | 2020-06-30 13:11 | Diagnostic Imaging Report ---
INDICATION: Routine screening. COMPARISON is made with prior mammograms from 07/15/2019 and 07/15/2018. Unilateral right 2-D and 3-D screening mammography was performed with CAD. Scattered fibroglandular densities in the right breast are noted. A nodular density noted in the central right breast does appear to be slightly smaller when compared with prior exam, likely owing to diminution of a cyst. No new mass or malignant appearing microcalcifications are seen. There are benign calcifications in the right breast. Right axilla is unremarkable. IMPRESSION: BI-RADS Category 2 No mammographic features suspicious for malignancy are identified. ACR BI-RADS Category 2: Benign findings. Result letter will be mailed to the patient. Note: At least 10% of breast cancer is not imaged by mammography. Dictated by: Dictated on workstation # [id number]
== END ==
LOC: RAD 09:34
PROVIDERS: ATTEND Nurse Practitioner Family
DX: Z12.31 Encounter for screening mammogram for malignant neoplasm of breast (principal)
CPT/HCPCS: 77063

== ENCOUNTER 2020-07-27 08:53 | Outpatient (RCR) | payer MEDICARE ==
[2020-07-20 09:29] LABS: BASOPHILS % (AUTO) 0 % (0-10); EOSINOPHILS # (AUTO) 0.1 10^3/uL (0.0-0.3); EOSINOPHILS % (AUTO) 1 % (0-10); HEMATOCRIT 40 % (35-52); HEMOGLOBIN 13.3 g/dL (11.5-16.0); LYMPHOCYTES # (AUTO) 12.6 10^3/uL (1.0-4.0); LYMPHOCYTES % (AUTO) 80 % (12-44); MEAN CORPUSCULAR HEMOGLOBIN 35 pg (25-34); MEAN CORPUSCULAR HGB CONC 33 g/dL (32-36); MEAN CORPUSCULAR VOLUME 106 fL (80-99); MEAN PLATELET VOLUME 11.1 fL (9.0-12.2); MONOCYTES # (AUTO) 0.3 10^3/uL (0.0-1.0); MONOCYTES % (AUTO) 2 % (0-12); NEUTROPHILS # (AUTO) 2.7 10^3/uL (1.8-7.8); NEUTROPHILS % (AUTO) 17 % (42-75); PLATELET COUNT 132 10^3/uL (130-400); WHITE BLOOD COUNT 15.7 10^3/uL (4.3-11.0)
[2020-07-20 09:50] LABS: ALBUMIN 3.7 GM/DL (3.2-4.5); BILIRUBIN,TOTAL 0.5 MG/DL (0.1-1.0); CALCIUM 8.6 MG/DL (8.5-10.1); CREATININE SERUM 1.18 MG/DL (0.60-1.30); POTASSIUM 4.7 MMOL/L (3.6-5.0); TOTAL PROTEIN 5.5 GM/DL (6.4-8.2)
== END 2020-10-18 | disposition home or self-care (01) ==
LOC: ONC 08:53
PROVIDERS: ATTEND Internal Medicine Hematology & Oncology
DX: C83.00 Small cell B-cell lymphoma, unspecified site (principal); D80.1 Nonfamilial hypogammaglobulinemia; E46 Unspecified protein-calorie malnutrition; E03.9 Hypothyroidism, unspecified; M81.0 Age-related osteoporosis without current pathological fracture; Z85.3 Personal history of malignant neoplasm of breast; Z87.81 Personal history of (healed) traumatic fracture; Z87.311 Personal history of (healed) other pathological fracture; Z98.1 Arthrodesis status
CPT/HCPCS: 80053; 82784; 85025; 99213

== ENCOUNTER 2021-02-08 08:45 | Outpatient (RCR) | payer MEDICARE ==
[2021-02-01 14:36] LABS: EOSINOPHILS # (AUTO) 0.1 10^3/uL (0.0-0.3); EOSINOPHILS % (AUTO) 0 % (0-10); MEAN CORPUSCULAR HGB CONC 32 g/dL (32-36)
[2021-02-01 14:37] LABS: BASOPHILS # (AUTO) 0.1 10^3/uL (0.0-0.1); BASOPHILS % (AUTO) 0 % (0-10); HEMATOCRIT 40 % (35-52); HEMOGLOBIN 12.8 g/dL (11.5-16.0); LYMPHOCYTES % (AUTO) 77 % (12-44); MEAN CORPUSCULAR HEMOGLOBIN 36 pg (25-34); MEAN CORPUSCULAR VOLUME 112 fL (80-99); MONOCYTES # (AUTO) 0.9 10^3/uL (0.0-1.0); MONOCYTES % (AUTO) 5 % (0-12); NEUTROPHILS # (AUTO) 3.1 10^3/uL (1.8-7.8); NEUTROPHILS % (AUTO) 17 % (42-75); PLATELET COUNT 139 10^3/uL (130-400); WHITE BLOOD COUNT 18.1 10^3/uL (4.3-11.0)
[2021-02-01 14:54] LABS: ALBUMIN 3.9 GM/DL (3.2-4.5); BILIRUBIN,TOTAL 0.6 MG/DL (0.1-1.0); CALCIUM 9.2 MG/DL (8.5-10.1); CREATININE SERUM 1.23 MG/DL (0.60-1.30); POTASSIUM 4.3 MMOL/L (3.6-5.0); TOTAL PROTEIN 5.8 GM/DL (6.4-8.2)
== END 2021-05-02 | disposition home or self-care (01) ==
LOC: ONC 08:45
PROVIDERS: ATTEND Internal Medicine Hematology & Oncology
DX: C83.00 Small cell B-cell lymphoma, unspecified site (principal); D80.1 Nonfamilial hypogammaglobulinemia; E46 Unspecified protein-calorie malnutrition; E03.9 Hypothyroidism, unspecified; M81.0 Age-related osteoporosis without current pathological fracture; Z85.3 Personal history of malignant neoplasm of breast; Z87.81 Personal history of (healed) traumatic fracture; Z87.311 Personal history of (healed) other pathological fracture; Z98.1 Arthrodesis status
CPT/HCPCS: 80053; 82784; 85025; 99213

== ENCOUNTER → 2021-02-12 | Outpatient (CLI) | payer MEDICARE ==
--- NOTE | 2021-02-12 11:32 | Diagnostic Imaging Report ---
INDICATION: Back pain. Comparison made with prior examination from 04/30/2018. FINDINGS: There has been a T7 kyphoplasty. Bones are diffusely osteopenic. There are now compression fractures at T6 and T8. The T4 and T11 fractures are stable. IMPRESSION: Interval development of compression fractures of T6 and T8. The age of these are indeterminate. Recommend clinical correlation and if warranted follow-up with MRI of the thoracic spine. Chronic T4 and T11 compression fractures. Osteopenia and mild diffuse thoracic spondylosis. Dictated by: Dictated on workstation # [id number]
== END ==
LOC: RAD 09:46
PROVIDERS: ATTEND Nurse Practitioner Family
DX: M48.54XA Collapsed vertebra, not elsewhere classified, thoracic region, initial encounter for fracture (principal); M47.814 Spondylosis without myelopathy or radiculopathy, thoracic region
CPT/HCPCS: 72072

== ENCOUNTER → 2021-02-19 | Outpatient (CLI) | payer MEDICARE ==
--- NOTE | 2021-02-19 10:26 | Diagnostic Imaging Report ---
INDICATION: Mid back pain. COMPARISON: 05/05/2018. TECHNIQUE: Routine noncontrast multiplanar, multisequence MR thoracic spine was performed. FINDINGS: Patient is status post interval T7 methyl methacrylate augmentation. There is, however, new acute fracture of T6, primarily involving the superior endplate. This results in 50% or greater vertebral body height loss. Note is made of extension into the posterior vertebral body wall with slight buckling of the posterior vertebral body wall. There is, however, no significant associated narrowing of the spinal canal. There is diffuse heterogeneic appearance to the marrow signal with overall predominant abnormal T1 low signal. No focal single dominant mass is identified. No other acute fracture is seen. Evaluation of the static alignment shows exaggerated kyphosis of the mid thoracic spine. There is no significant daniel- or retro-listhesis. There is no evidence of jumped facets. There is mild multilevel intervertebral disc height loss as well as multilevel mild anterior and posterior disc bulging. This does result in mild multilevel narrowing of the spinal canal. Thoracic cord is normal in course and contour. There is no evidence of cord edema. No abnormal intrathecal filling defects are seen. Pre- and para-vertebral soft tissue structures are unremarkable. Axial images again show mild multilevel posterior disc bulging, greatest at T8-T9 where there is central focal posterior disc protrusion resulting in moderate narrowing of the spinal canal. There is also mild multilevel neural foraminal stenosis. IMPRESSION: 1. New acute fracture of the T6 vertebral body. Patient may be a candidate for kyphoplasty. 2. Moderate multilevel degenerative changes of the thoracic spine, greatest at T8-T9. 3. Diffuse abnormal marrow signal. When compared to prior exam dated 10/27/2015, this does appear to be a chronic process and may be on the basis of underlying marrow replacement process. No single dominant mass is identified. Dictated by: Dictated on workstation # [id number]
== END ==
LOC: RAD 09:03
PROVIDERS: ATTEND Nurse Practitioner Family
DX: M48.54XA Collapsed vertebra, not elsewhere classified, thoracic region, initial encounter for fracture (principal); M47.814 Spondylosis without myelopathy or radiculopathy, thoracic region
CPT/HCPCS: 72146

== ENCOUNTER 2021-03-15 08:38 | Emergency (ER) | payer MEDICARE ==
[~2021-03-15] VITALS: Ht 167 cm; Wt 58.0 kg
--- NOTE | 2021-03-15 09:20 | ED Chest Pain ---
General Chief Complaint: Chest Pain Stated Complaint: LEFT BREAST PAIN Nursing Triage Note: PT CO OF CHEST PAIN ON L CHEST AREA BELOW MASTECTOMY AREA, PT PAIN IS REPRODUCABLE, PT STATES STARTED ON FRIDAY AT TIME PAIN IN UP TO 01/02 Source: patient, old records Exam Limitations: no limitations History of Present Illness Date Seen by Provider: Mar 15, 2021 Time Seen by Provider: 08:47 Initial Comments This delightful 85-year-old woman presents to the emergency room with left anterior chest wall pain for the past 4 days. It is tender to palpation but not painful with breathing. She denies shortness of breath but appears to be slightly tachypneic on arrival. She was sent to the ER for further evaluation by Dr. Gallegos's office when she called into inquire about her chest pain. She has a history of mastectomy and the pain is near the surgical scar. She also has history of CLL. No history of cardiopulmonary disease. She denies fever or cough. Allergies and Home Medications Allergies Coded Allergies: No Known Drug Allergies (Unverified , 07/05/15) Patient Home Medication List Home Medication List Reviewed: Yes Acetaminophen (Acetaminophen) 325 Mg Tablet, 650 MG PO Q4H PRN for FEVER Prescribed by: DAFNE WALKER on 07/14/15 0843 Aspirin (Aspir 81) 81 Mg Tablet., 81 MG PO DAILY @ 1200, (Reported) Entered as Reported by: JM DONALDSON on 07/05/15 0955 Calcium Carbonate/Vitamin D3 (Calcium 500 + D Tablet) 1 Each Tablet, 1 TAB PO DAILY @ 1200, (Reported) Entered as Reported by: REBECCA GREENE on 07/05/15 1342 Levothyroxine Sodium (Levothyroxine Sodium) 100 Mcg Tablet, 100 MCG PO DAILY, (Reported) Entered as Reported by: JM DONALDSON on 07/05/15 0955 Review of Systems Review of Systems Constitutional: no symptoms reported EENTM: No Symptoms Reported Respiratory: No Symptoms Reported Cardiovascular: See HPI Gastrointestinal: No Symptoms Reported Genitourinary: No Symptoms Reported Musculoskeletal: see HPI Skin: no symptoms reported Psychiatric/Neurological: No Symptoms Reported Endocrine: No Symptoms Reported Hematologic/Lymphatic: See HPI Past Jkqatme-[id number]-Xfxzot Hx Patient Social History Tobacco Use?: No Substance use?: No Alcohol Use?: No Immunizations Up To Date Tetanus Booster (TDap): More than 5yrs Seasonal Allergies Seasonal Allergies: No Past Medical History Surgeries: Yes Breast (Mastectomy) Respiratory: No Currently Using CPAP: No Currently Using BIPAP: No Neurological: No : No Reproductive Disorders: No Genitourinary: No Gastrointestinal: No Musculoskeletal: Yes Fractures (Compression fractures) Endocrine: Yes Hypothyroidsim HEENT: Yes Cataract Loss of Vision: Denies Cancer: Yes Breast, Lymphoma Did You Recieve Any Treatments: Yes What Type of Treatment Did You: Surgical Intervention Integumentary: No Adverse Reaction/Blood Tranf: No Family Medical History Cardiovascular disease 19 FATHER Cataracts G8 SISTER Deafness or hearing loss 19 MOTHER Dementia Neoplasm 19 MOTHER G8 SISTER Physical Exam Vital Signs Vital Signs - First Documented 03/15/21 08:40 Temp 36.3 Pulse 76 Resp 18 B/P (MAP) 145/90 (108) Pulse Ox 96 Capillary Refill : Less Than 3 Seconds Height, Weight, BMI Height: 5'7.00" Weight: 133lbs. 5.0oz. 60.186337vk; 20.00 BMI Method:Stated General Appearance: No Apparent Distress, WD/WN, Thin HEENT: PERRL/EOMI, Normal ENT Inspection Neck: Normal Inspection Respiratory: Lungs Clear, Normal Breath Sounds, No Accessory Muscle Use, No Respiratory Distress Cardiovascular: Regular Rate, Rhythm, No Edema, No Murmur Gastrointestinal: Normal Bowel Sounds, Non Tender, Soft Extremity: Normal Inspection, Non Tender, No Calf Tenderness, No Pedal Edema Neurologic/Psychiatric: Alert, Oriented x3, No Motor/Sensory Deficits, Normal Mood/Affect, tech writer II-XII Norm as Tested Skin: Normal Color, Warm/Dry Progress/Results/Core Measures Results/Orders Lab Results Laboratory Tests Test 03/15/21 09:10 Range/Units White Blood Count 16.8 H 4.3-11.0 10^3/uL Red Blood Count 3.62 L 3.80-5.11 10^6/uL Hemoglobin 13.0 11.5-16.0 g/dL Hematocrit 39 35-52 % Mean Corpuscular Volume 108 H 80-99 fL Mean Corpuscular Hemoglobin 36 H 25-34 pg Mean Corpuscular Hemoglobin Concent 33 32-36 g/dL Red Cell Distribution Width 13.9 10.0-14.5 % Platelet Count 138 130-400 10^3/uL Mean Platelet Volume 10.9 9.0-12.2 fL Immature Granulocyte % (Auto) 0 % Neutrophils (%) (Auto) 20 L 42-75 % Lymphocytes (%) (Auto) 78 H 12-44 % Monocytes (%) (Auto) 1 0-12 % Eosinophils (%) (Auto) 0 0-10 % Basophils (%) (Auto) 0 0-10 % Neutrophils # (Auto) 3.4 1.8-7.8 10^3/uL Lymphocytes # (Auto) 13.1 H 1.0-4.0 10^3/uL Monocytes # (Auto) 0.2 0.0-1.0 10^3/uL Eosinophils # (Auto) 0.1 0.0-0.3 10^3/uL Basophils # (Auto) 0.0 0.0-0.1 10^3/uL Immature Granulocyte # (Auto) 0.0 0.0-0.1 10^3/uL Neutrophils % (Manual) 37 % Lymphocytes % (Manual) 55 % Monocytes % (Manual) 1 % Eosinophils % (Manual) 0 % Basophils % (Manual) 0 % Atypical Lymphocytes 7 % Smudge Cells MOD Percent Immature Platelet Fraction 3.6 0.0-7.6 % Anisocytosis SLIGHT Macrocytosis SLIGHT Prothrombin Time 13.6 12.2-14.7 SEC INR Comment 1.0 0.8-1.4 Activated Partial Thromboplast Time 25 24-35 SEC Sodium Level 141 135-145 MMOL/L Potassium Level 4.3 3.6-5.0 MMOL/L Chloride Level 109 H 98-107 MMOL/L Carbon Dioxide Level 22 21-32 MMOL/L Anion Gap 10 5-14 MMOL/L Blood Urea Nitrogen 23 H 7-18 MG/DL Creatinine 1.09 0.60-1.30 MG/DL Estimat Glomerular Filtration Rate 47 BUN/Creatinine Ratio 21 Glucose Level 111 H 70-105 MG/DL Calcium Level 9.5 8.5-10.1 MG/DL Corrected Calcium 9.6 8.5-10.1 MG/DL Magnesium Level 1.9 1.6-2.4 MG/DL Total Bilirubin 0.6 0.1-1.0 MG/DL Aspartate Amino Transf (AST/SGOT) 19 5-34 U/L Alanine Aminotransferase (ALT/SGPT) 18 0-55 U/L Alkaline Phosphatase 70 40-136 U/L Myoglobin 65.8 10.0-92.0 NG/ML Troponin I < 0.028 <0.028 NG/ML C-Reactive Protein High Sensitivity 0.23 0.00-0.50 MG/DL Total Protein 5.9 L 6.4-8.2 GM/DL Albumin 3.9 3.2-4.5 GM/DL Procalcitonin 0.04 <0.10 NG/ML My Orders Orders - NATA BELTRAN MD Cbc With Automated Diff (03/15/21 09:10) Magnesium (03/15/21 09:10) Chest 1 View, Ap/Pa Only (03/15/21 09:10) Ekg Tracing (03/15/21 09:10) Comprehensive Metabolic Panel (03/15/21 09:10) Myoglobin Serum (03/15/21 09:10) Protime With Inr (03/15/21 09:10) Partial Thromboplastin Time (03/15/21 09:10) O2 (03/15/21 09:10) Monitor-Rhythm Ecg Trace Only (03/15/21 09:10) Ed Iv/Invasive Line Start (03/15/21 09:10) Troponin I (03/15/21 09:10) Manual Differential (03/15/21 09:10) Hs C Reactive Protein (03/15/21 09:55) Procalcitonin (Pct) (03/15/21 09:55) Ct Chest W (03/15/21 09:55) Ns Iv 1000 Ml (Sodium Chloride 0.9%) (03/15/21 10:00) Iohexol Injection (Omnipaque 350 Mg/Ml 1 (03/15/21 10:15) Received Contrast (Hold Metformin- Contr (03/15/21 10:15) Sodium Chloride Flush (Catheter Flush Sy (03/15/21 10:15) Ns (Ivpb) (Sodium Chloride 0.9% Ivpb Bag (03/15/21 10:15) Medications Given in ED Current Medications Medications Dose Ordered Sig/Yesi Route Start Time Stop Time Status Last Admin Dose Admin Iohexol 65 ml ONCE ONCE IV 03/15/21 10:15 03/15/21 10:16 DC 03/15/21 10:32 65 ML Sodium Chloride 10 ml NEEDED PRN IV 03/15/21 10:15 03/15/21 11:55 DC 03/15/21 10:32 10 ML Sodium Chloride 100 ml ONCE ONCE IV 03/15/21 10:15 03/15/21 10:16 DC 03/15/21 10:32 80 ML Vital Signs/I&O 03/15/21 03/15/21 08:40 11:55 Temp 36.3 36.3 Pulse 76 76 Resp 18 18 B/P (MAP) 145/90 (108) 145/90 Pulse Ox 96 96 Blood Pressure Mean: 108 Progress Progress Note : Progress Note Initial work-up revealed no obvious findings to explain her pain. Work-up proceeded with CT of the chest. No lung abnormalities such as neoplastic lesions or infections were identified. One 7 rib fracture on the left was identified in the region of her pain. We discussed treatment with analgesics and incentive spirometry. Patient has not wanting to use any analgesics stronger than Tylenol. I advised her to avoid ibuprofen as it may delay bone healing. We discussed use of topical pain control such as a lidocaine patch. Patient has incentive spirometer at home and knows how to use it. She was ultimately discharged home in stable condition. Initial ECG Impression Date: Mar 15, 2021 Initial ECG Impression Time: 08:54 Initial ECG Rate: 72 Initial ECG Rhythm: Normal Sinus Initial ECG Intervals: Normal Initial ECG Impression: Normal Comment Normal sinus rhythm with no ST elevation or depression. No abnormal intervals. LVH. Diagnostic Imaging Diagonstic Imaging: Xray Plain Films/CT/US/NM/MRI: chest Comments Chest x-ray viewed by me and report reviewed. See report below: NAME: MI[facility] REC#: [id number] PT STATUS: DEP ER : 1935 PHYSICIAN: NATA BELTRAN MD ADMIT DATE: 03/15/21/ER Signed Date of Exam:03/15/21 CHEST 1 VIEW, AP/PA ONLY Clinical indication: Patient complains of chest pain in the left chest area below mastectomy area. Patient has reproducible pain that started Friday. Exam: Portable chest x-ray upright view. Comparisons: CT scan of the chest without contrast dated 12/31/2007. Findings: There is a small to moderate sized area of increased density overlying the left mid to lower lung field/left breast region. This is seen on comparison CT scan of the chest and related to breast implant. There are mild airspace patchy opacities involving the right lung base which slightly obscures the right heart border. There is no pneumothorax or pleural effusion. There is an amorphous area of consolidation overlying the left hemithorax/rib region which appears in the extrathoracic region. Unknown if this is within the breast tissue, extrathoracic soft tissue or associated with the ribs. Pulmonary vasculature is within normal limits. Cardiac silhouette is upper limits of normal for portable projection. There is left curvature of the lumbar spine. IMPRESSION: 1: There is small area of airspace opacification overlying the right lung base which may represent lung infiltrate. 2: Again noted area of high-density overlying the left lower lung field/left breast region related to breast implant. 3: Upper limits of normal heart size for portable projection. Dictated by: Dictated on workstation # [id number] Dict: 03/15/21923 Trans: 03/15/211732 [facility] [id number] Interpreted by: MORALES BAEZA MD Electronically signed by: MORALES BAEZA MD 03/15/21 173 Diagonstic Imaging: CT Plain Films/CT/US/NM/MRI: chest Comments CT viewed by me and report reviewed. See report below: NAME: MIKA [facility] REC#: [id number] PT STATUS: REG ER : 1935 PHYSICIAN: NATA BELTRAN MD ADMIT DATE: 03/15/21/ER Signed Date of Exam:03/15/21 CT CHEST W EXAMINATION: CT chest with intravenous contrast. TECHNIQUE: Multiple contiguous axial images were obtained through the chest after the uneventful administration of intravenous contrast. All CT scans use one or more of the following dose optimizing techniques: automated exposure control, MA and/or KvP adjustment based on patient size and exam type or iterative reconstruction. HISTORY: Left chest wall pain COMPARISON: 12/31/2007 FINDINGS: Thyroid: The thyroid is normal. Mediastinum: Heart size is normal without significant pericardial effusion. Calcifications of the aorta and coronary vessels. Thoracic aorta is normal in caliber. No suspicious lymphadenopathy. Lungs and airways: There is consolidation within the left lung base. There is scattered scarring seen within the dependent lower lungs. No pleural effusion or pneumothorax. Mild consolidation within the inferior right middle lobe. There is a calcified granuloma within the right lung base. The airways are normal. Upper abdomen: The subphrenic structures are normal. Musculoskeletal: Stable multilevel compression fractures throughout the thoracic spine with changes from midthoracic vertebral augmentation. No new compression fracture or other suspicious osseous lesion. There are chronic healed left rib fractures. There is an acute, nondisplaced fracture of the anterior left 7th rib (series 3 image 137). IMPRESSION: 1. Acute minimally displaced fracture of the anterior left 7th rib. Additional chronic appearing left rib fractures. 2. No other acute abnormality in the chest. Dictated by: Dictated on workstation # [id number] Dict: 03/15/21 1045 Trans: 03/15/21 1121 [id number] Interpreted by: BETSY BIRD DO Electronically signed by: BETSY BIRD DO 03/15/21 1121 Departure Impression Primary Impression: Left rib fracture Qualified Codes: S22.32XA - Fracture of one rib, left side, initial encounter for closed fracture Additional Impressions: Chest wall pain History of breast cancer Disposition: HOME, SELF-CARE Condition: Improved Departure-Patient Inst. Decision time for Depature: 11:40 Referrals: EUGENIO GALLEGOS MD (PCP/Family) Primary Care Physician Patient Instructions: Rib Fracture (DC) Add. Discharge Instructions: You may take Tylenol (acetaminophen) up to 1000 mg every 6 hours as needed for pain. Avoid NSAID medications such as ibuprofen as they may delay bone healing. A topical patch such as Salonpas may be helpful to control pain as well. Exercise deep breathing including use of your incentive spirometer. Take 10 breaths in a 2-hour period of time while awake. Drink plenty of clear liquids to stay well-hydrated. Return to care if you have worsening symptoms or develop new symptoms such as fever. Call with questions or concerns. All discharge instructions reviewed with patient and/or family. Voiced understanding. Copy Copies To 1: EUGENIO GALLEGOS MD, JOSHUA T MD Mar 15, 2021 09:20
[2021-03-15 09:27] LABS: BASOPHILS % (AUTO) 0 % (0-10); EOSINOPHILS # (AUTO) 0.1 10^3/uL (0.0-0.3); EOSINOPHILS % (AUTO) 0 % (0-10); HEMATOCRIT 39 % (35-52); LYMPHOCYTES # (AUTO) 13.1 10^3/uL (1.0-4.0); LYMPHOCYTES % (AUTO) 78 % (12-44); MEAN CORPUSCULAR HEMOGLOBIN 36 pg (25-34); MEAN CORPUSCULAR HGB CONC 33 g/dL (32-36); MEAN CORPUSCULAR VOLUME 108 fL (80-99); MEAN PLATELET VOLUME 10.9 fL (9.0-12.2); MONOCYTES # (AUTO) 0.2 10^3/uL (0.0-1.0); MONOCYTES % (AUTO) 1 % (0-12); NEUTROPHILS # (AUTO) 3.4 10^3/uL (1.8-7.8); NEUTROPHILS % (AUTO) 20 % (42-75); PLATELET COUNT 138 10^3/uL (130-400); WHITE BLOOD COUNT 16.8 10^3/uL (4.3-11.0)
[2021-03-15 09:33] LABS: PROTHROMBIN TIME PATIENT 13.6 SEC (12.2-14.7)
[2021-03-15 09:38] LABS: ALBUMIN 3.9 GM/DL (3.2-4.5); POTASSIUM 4.3 MMOL/L (3.6-5.0)
[2021-03-15 09:39] LABS: CALCIUM 9.5 MG/DL (8.5-10.1)
[2021-03-15 09:41] LABS: TOTAL PROTEIN 5.9 GM/DL (6.4-8.2)
[2021-03-15 09:42] LABS: BILIRUBIN,TOTAL 0.6 MG/DL (0.1-1.0)
[2021-03-15 09:44] LABS: CREATININE SERUM 1.09 MG/DL (0.60-1.30)
[2021-03-15 09:47] LABS: MAGNESIUM 1.9 MG/DL (1.6-2.4)
--- NOTE | 2021-03-15 09:49 | Diagnostic Imaging Report ---
Clinical indication: Patient complains of chest pain in the left chest area below mastectomy area. Patient has reproducible pain that started Friday. Exam: Portable chest x-ray upright view. Comparisons: CT scan of the chest without contrast dated 12/31/2007. Findings: There is a small to moderate sized area of increased density overlying the left mid to lower lung field/left breast region. This is seen on comparison CT scan of the chest and related to breast implant. There are mild airspace patchy opacities involving the right lung base which slightly obscures the right heart border. There is no pneumothorax or pleural effusion. There is an amorphous area of consolidation overlying the left hemithorax/rib region which appears in the extrathoracic region. Unknown if this is within the breast tissue, extrathoracic soft tissue or associated with the ribs. Pulmonary vasculature is within normal limits. Cardiac silhouette is upper limits of normal for portable projection. There is left curvature of the lumbar spine. IMPRESSION: 1: There is small area of airspace opacification overlying the right lung base which may represent lung infiltrate. 2: Again noted area of high-density overlying the left lower lung field/left breast region related to breast implant. 3: Upper limits of normal heart size for portable projection. Dictated by: Dictated on workstation # [id number]
[2021-03-15] MEDS ORDERED: NS IV 1000 ML 1,000 ML IV SCH (10:00)
[2021-03-15] MEDS ORDERED: HOLD METFORMIN - RECEIVED CONTRAST 20 ML VIAL IV SCH (10:15)
[2021-03-15] MEDS ORDERED: NS 100 ML (IVPB) BAG IV ONE (10:15)
[2021-03-15] MEDS ORDERED: CATHETER FLUSH 10 ML SYR IV PRN (10:15)
[2021-03-15] MEDS ORDERED: IOHEXOL 350 MG/ML 100 ML (OMNIPAQUE 350) VIAL IV ONE (10:15)
[2021-03-15 10:38] LABS: ANISOCYTOSIS SLIGHT; ATYPICAL LYMPHOCYTES 7 %; BASOPHILS % (MANUAL) 0 %; EOSINOPHILS % (MANUAL) 0 %; LYMPHOCYTES % (MANUAL) 55 %; MONOCYTES % (MANUAL) 1 %; NEUTROPHILS % (MANUAL) 37 %; SMUDGE CELLS MOD
--- NOTE | 2021-03-15 10:54 | Diagnostic Imaging Report ---
EXAMINATION: CT chest with intravenous contrast. TECHNIQUE: Multiple contiguous axial images were obtained through the chest after the uneventful administration of intravenous contrast. All CT scans use one or more of the following dose optimizing techniques: automated exposure control, MA and/or KvP adjustment based on patient size and exam type or iterative reconstruction. HISTORY: Left chest wall pain COMPARISON: 12/31/2007 FINDINGS: Thyroid: The thyroid is normal. Mediastinum: Heart size is normal without significant pericardial effusion. Calcifications of the aorta and coronary vessels. Thoracic aorta is normal in caliber. No suspicious lymphadenopathy. Lungs and airways: There is consolidation within the left lung base. There is scattered scarring seen within the dependent lower lungs. No pleural effusion or pneumothorax. Mild consolidation within the inferior right middle lobe. There is a calcified granuloma within the right lung base. The airways are normal. Upper abdomen: The subphrenic structures are normal. Musculoskeletal: Stable multilevel compression fractures throughout the thoracic spine with changes from midthoracic vertebral augmentation. No new compression fracture or other suspicious osseous lesion. There are chronic healed left rib fractures. There is an acute, nondisplaced fracture of the anterior left 7th rib (series 3 image 137). IMPRESSION: 1. Acute minimally displaced fracture of the anterior left 7th rib. Additional chronic appearing left rib fractures. 2. No other acute abnormality in the chest. Dictated by: Dictated on workstation # [id number]
[2021-03-15 11:55] VITALS: BP 145/90
== END 2021-03-15 11:55 | disposition home or self-care (01) ==
LOC: EDUNIT# 08:38 → ER 08:42
DX: S22.32XA Fracture of one rib, left side, initial encounter for closed fracture (principal); E03.9 Hypothyroidism, unspecified; Z79.890 Hormone replacement therapy; Z79.82 Long term (current) use of aspirin; X58.XXXA Exposure to other specified factors, initial encounter
CPT/HCPCS: 36415; 71045; 71260; 80053; 83735; 83874; 84145; 84484; 85007; 85027; 85610; 85730; 86141; 93005; 93041

== ENCOUNTER 2021-04-05 13:25 | Outpatient (CLI) | payer MEDICARE ==
[~2021-04-05] VITALS: Wt 58.0 kg
[2021-04-05] MEDS ORDERED: DENOSUMAB 60 MG/1 ML (PROLIA) SQ ONE (13:45)
[2021-04-05 14:00] VITALS: BP 147/96
== END 2021-04-05 14:15 ==
LOC: SDC 13:25
PROVIDERS: ATTEND Nurse Practitioner Family
DX: M81.0 Age-related osteoporosis without current pathological fracture (principal)
CPT/HCPCS: 96372

== ENCOUNTER → 2021-06-29 | Outpatient (CLI) | payer MEDICARE ==
--- NOTE | 2021-06-29 11:00 | Diagnostic Imaging Report ---
INDICATION: Routine screening. Comparison is made with prior mammogram 06/30/2020 and 07/15/2019. Unilateral right 2-D and 3-D screening mammography was performed with CAD. Right breast is heterogeneously dense, limiting the sensitivity of mammography. The parenchymal pattern is stable. No mass or malignant-appearing microcalcifications are seen. There are benign calcifications in the right breast. Right axilla is unremarkable. IMPRESSION: No mammographic features suspicious for malignancy are identified. BI-RADS Category 2 ACR BI-RADS Category 2: Benign findings. Result letter will be mailed to the patient. Note: At least 10% of breast cancer is not imaged by mammography. Dictated by: Dictated on workstation # [id number]
== END ==
LOC: RAD 09:30
PROVIDERS: ATTEND Family Medicine
DX: Z12.31 Encounter for screening mammogram for malignant neoplasm of breast (principal)
CPT/HCPCS: 77063

== ENCOUNTER 2021-08-22 12:47 | Outpatient (RCR) | payer MEDICARE ==
[2021-08-09 10:50] LABS: BASOPHILS % (AUTO) 0 % (0-10); EOSINOPHILS # (AUTO) 0.1 10^3/uL (0.0-0.3); EOSINOPHILS % (AUTO) 0 % (0-10); HEMATOCRIT 36 % (35-52); HEMOGLOBIN 11.7 g/dL (11.5-16.0); LYMPHOCYTES # (AUTO) 22.1 10^3/uL (1.0-4.0); LYMPHOCYTES % (AUTO) 87 % (12-44); MEAN CORPUSCULAR HEMOGLOBIN 37 pg (25-34); MEAN CORPUSCULAR HGB CONC 33 g/dL (32-36); MEAN CORPUSCULAR VOLUME 113 fL (80-99); MEAN PLATELET VOLUME 11.1 fL (9.0-12.2); MONOCYTES # (AUTO) 0.1 10^3/uL (0.0-1.0); MONOCYTES % (AUTO) 1 % (0-12); NEUTROPHILS % (AUTO) 12 % (42-75); PLATELET COUNT 141 10^3/uL (130-400); WHITE BLOOD COUNT 25.4 10^3/uL (4.3-11.0)
[2021-08-09 11:07] LABS: ALBUMIN 3.8 GM/DL (3.2-4.5); BILIRUBIN,TOTAL 0.5 MG/DL (0.1-1.0); CALCIUM 8.8 MG/DL (8.5-10.1); CREATININE SERUM 1.1 MG/DL (0.60-1.30); POTASSIUM 4.9 MMOL/L (3.6-5.0); TOTAL PROTEIN 5.7 GM/DL (6.4-8.2)
[~2021-08-22] VITALS: Ht 167.4 cm; Wt 55.3 kg
[~2021-08-22 12:47] MED LIST changes: +ACETAMINOPHEN 500 MG TAB (TYLENOL) CANCER CTR PO PRN; +IMMU GLOBULIN,GAMMA 100 ML IV SCH; +IMMU GLOBULIN,GAMMA 200 ML IV SCH; +diphenhydrAMINE 25 MG TAB (BENADRYL) CANCER CENTER PO SCH
[2021-08-22] MEDS ORDERED: HEParin (CENTRAL IV FLUSH) 500 UNIT/5 ML SYR IV PRN (13:15)
[2021-08-22] MEDS ORDERED: ACETAMINOPHEN 500 MG TAB (TYLENOL) PO SCH (13:15)
[2021-08-22] MEDS ORDERED: diphenhydrAMINE 25 MG TAB (BENADRYL) PO SCH (13:15)
== END 2021-08-23 | disposition home or self-care (01) ==
LOC: ONC 12:47
PROVIDERS: ATTEND Internal Medicine Hematology & Oncology
DX: C83.00 Small cell B-cell lymphoma, unspecified site (principal)
CPT/HCPCS: 36415; 80053; 82784; 85025; 96360; 96365; 96366; 96375; 99213; J1569

== ENCOUNTER 2021-09-19 10:19 | Outpatient (RCR) | payer MEDICARE ==
[2021-09-14 10:01] LABS: BASOPHILS # (AUTO) 0.1 10^3/uL (0.0-0.1); BASOPHILS % (AUTO) 0 % (0-10); EOSINOPHILS # (AUTO) 0.1 10^3/uL (0.0-0.3); EOSINOPHILS % (AUTO) 0 % (0-10); HEMATOCRIT 35 % (35-52); HEMOGLOBIN 11.6 g/dL (11.5-16.0); LYMPHOCYTES # (AUTO) 26.3 10^3/uL (1.0-4.0); LYMPHOCYTES % (AUTO) 91 % (12-44); MEAN CORPUSCULAR HEMOGLOBIN 38 pg (25-34); MEAN CORPUSCULAR HGB CONC 33 g/dL (32-36); MEAN CORPUSCULAR VOLUME 113 fL (80-99); MEAN PLATELET VOLUME 11.1 fL (9.0-12.2); MONOCYTES # (AUTO) 0.2 10^3/uL (0.0-1.0); MONOCYTES % (AUTO) 1 % (0-12); NEUTROPHILS # (AUTO) 2.3 10^3/uL (1.8-7.8); NEUTROPHILS % (AUTO) 8 % (42-75); PLATELET COUNT 130 10^3/uL (130-400)
[2021-09-14 10:18] LABS: ALBUMIN 3.7 GM/DL (3.2-4.5); BILIRUBIN,TOTAL 0.5 MG/DL (0.1-1.0); CALCIUM 8.9 MG/DL (8.5-10.1); CREATININE SERUM 1.14 MG/DL (0.60-1.30); POTASSIUM 5.1 MMOL/L (3.6-5.0); TOTAL PROTEIN 5.8 GM/DL (6.4-8.2)
[~2021-09-19 10:19] MED LIST changes: -ACETAMINOPHEN 500 MG TAB (TYLENOL) CANCER CTR PO PRN; +ACETAMINOPHEN 500 MG TAB (TYLENOL) PO SCH; +HEParin (CENTRAL IV FLUSH) 500 UNIT/5 ML SYR IV PRN; -diphenhydrAMINE 25 MG TAB (BENADRYL) CANCER CENTER PO SCH; +diphenhydrAMINE 25 MG TAB (BENADRYL) PO SCH
== END 2021-09-22 | disposition home or self-care (01) ==
LOC: ONC 10:19
PROVIDERS: ATTEND Internal Medicine Hematology & Oncology
DX: C83.00 Small cell B-cell lymphoma, unspecified site (principal)
CPT/HCPCS: 36415; 80053; 82784; 85025; 99213; J1569

== ENCOUNTER → 2021-09-25 | Outpatient (CLI) | payer MEDICARE ==
[~2021-09-25] MED LIST changes: -ACETAMINOPHEN 500 MG TAB (TYLENOL) PO SCH; -HEParin (CENTRAL IV FLUSH) 500 UNIT/5 ML SYR IV PRN; -IMMU GLOBULIN,GAMMA 100 ML IV SCH; -IMMU GLOBULIN,GAMMA 200 ML IV SCH; -diphenhydrAMINE 25 MG TAB (BENADRYL) PO SCH
--- NOTE | 2021-09-25 12:30 | Diagnostic Imaging Report ---
INDICATION: Back pain. TIME OF EXAM: 9:36 AM Frontal and lateral views thoracic spine were obtained and compared with prior study from 02/12/2021. There is a hyperkyphotic curvature to the thoracic spine. There are multilevel kyphoplasty changes. This appears to be approximately the levels of T7, T8 and T10. There appears to be vertebral plana at approximately T9. There is an age-indeterminate compression of approximately T12 as well as L2, L3 and L5. Paraspinous line is intact. IMPRESSION: Multilevel age-indeterminate compression fractures as well as multilevel kyphoplasty changes. If if there is concern for acuity, MRI could be performed for further evaluation. Dictated by: Dictated on workstation # [id number]
== END ==
LOC: RAD 09:21
PROVIDERS: ATTEND Nurse Practitioner Family
DX: M54.9 Dorsalgia, unspecified (principal); Z98.890 Other specified postprocedural states
CPT/HCPCS: 72072

== ENCOUNTER → 2021-10-09 | Outpatient (CLI) | payer MEDICARE ==
[~2021-10-09] MED LIST changes: +DENOSUMAB 60 MG/1 ML (PROLIA) SQ SCH
[2021-10-09 09:40] VITALS: BP 167/80
== END ==
LOC: SDC 08:58
PROVIDERS: ATTEND Nurse Practitioner Family
DX: M81.0 Age-related osteoporosis without current pathological fracture (principal)
CPT/HCPCS: 96372

== ENCOUNTER → 2021-10-17 | Outpatient (CLI) | payer MEDICARE ==
[~2021-10-17] MED LIST changes: -DENOSUMAB 60 MG/1 ML (PROLIA) SQ SCH
--- NOTE | 2021-10-17 10:41 | Diagnostic Imaging Report ---
PROCEDURE: MRI lumbar spine. TECHNIQUE: Multiplanar, multisequence MRI of the lumbar spine was performed without contrast. INDICATION: Back pain COMPARISON: Radiographs dated 09/25/2021 and prior MRIs dated 02/19/2021 and 05/28/2018. FINDINGS: 5 lumbar type vertebral bodies are present. [place] right curvature of the visualized thoracolumbar spine. No significant anterolisthesis or retrolisthesis. Multilevel endplate degenerative changes and vertebral body height loss is again noted throughout the lumbar spine, appearing unchanged since the prior examination. This includes a moderate inferior endplate concavity of L1, which is unchanged since 2019. Chronic anterior wedging and vertebral body height loss of T11 is again identified appearing stable from the prior exam. Developing vertebral body height loss and inferior endplate irregularity of T10 is noted when compared to prior exam from 2020. There is associated increased signal intensity within the T10/T11 disc space. This signal within the disc is new from prior exams. The paraspinal soft tissues are unremarkable. T10/T11: Bilateral facet joint degenerative changes. Mild disc space height loss with increased signal within the disc. Ligamentum flavum hypertrophy. There is resulting minimal central canal stenosis and mild bilateral neural foraminal stenosis. T11/T12: Bilateral facet joint degenerative changes. Small diffuse disc bulge. There is resulting mild bilateral neural foraminal stenosis and mild central canal stenosis. T12/L1: Mild facet joint degenerative changes. Tiny diffuse disc bulge. Mild disc space height loss. There is resulting mild central canal stenosis. Minimal left neural foraminal stenosis. No significant right neural foraminal stenosis. L1/L2: Mild facet joint degenerative changes. Ligamentum flavum hypertrophy. Small diffuse disc osteophyte complex. There is resulting mild to moderate trefoil type central canal stenosis. Moderate bilateral neural foraminal stenosis. L2/L3: Moderate facet joint degenerative changes. Ligamentum flavum hypertrophy. Small diffuse disc bulge. There is resulting mild to moderate trefoil-type central canal stenosis with moderate bilateral neural foraminal stenosis. L3/L4: Moderate facet joint degenerative changes. Ligamentum flavum hypertrophy. Small diffuse disc bulge. There is resultant moderate trefoil-type central canal stenosis with moderate bilateral neural foraminal stenosis. L4/L5: Moderate facet joint degenerative changes. Ligamentum flavum hypertrophy. Moderate disc space height loss. Small diffuse disc bulge. There is resulting moderate trefoil-type central canal stenosis with effacement of bilateral lateral recesses. Moderate to severe bilateral neural foraminal stenosis. L5/S1: Moderate facet joint degenerative changes. Ligamentum flavum hypertrophy. Small diffuse disc bulge. There is resulting severe left neural foraminal stenosis and moderate right neural foraminal stenosis. Mild trefoil-type central canal stenosis with effacement of the left greater than right lateral recesses. IMPRESSION: New abnormal signal and disc space height loss within the T10/T11 disc with worsening vertebral body height loss within the adjacent T10 vertebra. This may be on the basis of disc osteomyelitis. Recent trauma and fracture is an additional consideration. Recommend clinical correlation. Moderate multilevel degenerative changes throughout the lumbar spine with multilevel central canal and neural foraminal stenosis. Dictated by: Dictated on workstation # [id number]
== END ==
LOC: RAD 07:38
PROVIDERS: ATTEND Nurse Practitioner Gerontology
DX: M47.816 Spondylosis without myelopathy or radiculopathy, lumbar region (principal); M48.061 Spinal stenosis, lumbar region without neurogenic claudication
CPT/HCPCS: 72148

== ENCOUNTER 2021-10-18 08:55 | Outpatient (RCR) | payer MEDICARE ==
[2021-10-15 10:00] LABS: BASOPHILS % (AUTO) 0 % (0-10); EOSINOPHILS # (AUTO) 0.2 10^3/uL (0.0-0.3); EOSINOPHILS % (AUTO) 0 % (0-10); HEMATOCRIT 36 % (35-52); HEMOGLOBIN 11.5 g/dL (11.5-16.0); LYMPHOCYTES # (AUTO) 50.3 10^3/uL (1.0-4.0); LYMPHOCYTES % (AUTO) 92 % (12-44); MEAN CORPUSCULAR HEMOGLOBIN 37 pg (25-34); MEAN CORPUSCULAR HGB CONC 32 g/dL (32-36); MEAN CORPUSCULAR VOLUME 118 fL (80-99); MEAN PLATELET VOLUME 10.9 fL (9.0-12.2); MONOCYTES # (AUTO) 0.3 10^3/uL (0.0-1.0); MONOCYTES % (AUTO) 1 % (0-12); NEUTROPHILS # (AUTO) 4.1 10^3/uL (1.8-7.8); NEUTROPHILS % (AUTO) 7 % (42-75); PLATELET COUNT 157 10^3/uL (130-400)
[2021-10-15 10:07] LABS: WHITE BLOOD COUNT 54.9 10^3/uL (4.3-11.0)
[2021-10-15 10:26] LABS: BILIRUBIN,TOTAL 0.6 MG/DL (0.1-1.0); CALCIUM 8.7 MG/DL (8.5-10.1); CREATININE SERUM 1.04 MG/DL (0.60-1.30); POTASSIUM 4.4 MMOL/L (3.6-5.0); TOTAL PROTEIN 5.9 GM/DL (6.4-8.2)
[2021-10-25 12:28] LABS: BASOPHILS # (AUTO) 0.1 10^3/uL (0.0-0.1); BASOPHILS % (AUTO) 0 % (0-10); EOSINOPHILS # (AUTO) 0.1 10^3/uL (0.0-0.3); EOSINOPHILS % (AUTO) 0 % (0-10); HEMATOCRIT 35 % (35-52); HEMOGLOBIN 11.3 g/dL (11.5-16.0); LYMPHOCYTES % (AUTO) 90 % (12-44); MEAN CORPUSCULAR HEMOGLOBIN 38 pg (25-34); MEAN CORPUSCULAR HGB CONC 33 g/dL (32-36); MEAN CORPUSCULAR VOLUME 117 fL (80-99); MEAN PLATELET VOLUME 11.6 fL (9.0-12.2); MONOCYTES # (AUTO) 0.1 10^3/uL (0.0-1.0); MONOCYTES % (AUTO) 0 % (0-12); NEUTROPHILS # (AUTO) 3.2 10^3/uL (1.8-7.8); NEUTROPHILS % (AUTO) 9 % (42-75); PLATELET COUNT 116 10^3/uL (130-400)
[2021-10-25 12:32] LABS: WHITE BLOOD COUNT 36.5 10^3/uL (4.3-11.0)
== END 2021-10-23 | disposition home or self-care (01) ==
LOC: ONC 08:55
PROVIDERS: ATTEND Internal Medicine Hematology & Oncology
DX: C83.00 Small cell B-cell lymphoma, unspecified site (principal); D80.1 Nonfamilial hypogammaglobulinemia; E03.9 Hypothyroidism, unspecified; M81.0 Age-related osteoporosis without current pathological fracture; Z85.3 Personal history of malignant neoplasm of breast; Z87.81 Personal history of (healed) traumatic fracture
CPT/HCPCS: 36415; 80053; 82784; 85025

== ENCOUNTER → 2021-11-16 | Outpatient (CLI) | payer MEDICARE ==
[2021-11-16 10:31] LABS: FREE T4 (FREE THYROXINE) 1.26 NG/DL (0.70-1.48)
== END ==
LOC: LAB 09:49
PROVIDERS: ATTEND Family Medicine
DX: E03.9 Hypothyroidism, unspecified (principal); E55.9 Vitamin D deficiency, unspecified
CPT/HCPCS: 36415; 82306; 84439; 84443

== ENCOUNTER 2021-11-21 08:59 | Outpatient (RCR) | payer MEDICARE | END 2021-11-22 | disposition home or self-care (01) | PROVIDERS: ATTEND Family Medicine | DX: M41.9 Scoliosis, unspecified (principal); R53.1 Weakness ==

== ENCOUNTER → 2021-11-22 | Outpatient (RCR) | payer MEDICARE ==
[2021-10-25 12:28] LABS: BASOPHILS # (AUTO) 0.1 10^3/uL (0.0-0.1); BASOPHILS % (AUTO) 0 % (0-10); EOSINOPHILS # (AUTO) 0.1 10^3/uL (0.0-0.3); EOSINOPHILS % (AUTO) 0 % (0-10); HEMATOCRIT 35 % (35-52); HEMOGLOBIN 11.3 g/dL (11.5-16.0); LYMPHOCYTES % (AUTO) 90 % (12-44); MEAN CORPUSCULAR HEMOGLOBIN 38 pg (25-34); MEAN CORPUSCULAR HGB CONC 33 g/dL (32-36); MEAN CORPUSCULAR VOLUME 117 fL (80-99); MEAN PLATELET VOLUME 11.6 fL (9.0-12.2); MONOCYTES # (AUTO) 0.1 10^3/uL (0.0-1.0); MONOCYTES % (AUTO) 0 % (0-12); NEUTROPHILS # (AUTO) 3.2 10^3/uL (1.8-7.8); NEUTROPHILS % (AUTO) 9 % (42-75); PLATELET COUNT 116 10^3/uL (130-400)
[2021-10-25 12:32] LABS: WHITE BLOOD COUNT 36.5 10^3/uL (4.3-11.0)
[2021-11-16 09:53] LABS: BASOPHILS # (AUTO) 0.1 10^3/uL (0.0-0.1); BASOPHILS % (AUTO) 0 % (0-10)
[2021-11-16 09:55] LABS: EOSINOPHILS # (AUTO) 0.1 10^3/uL (0.0-0.3); EOSINOPHILS % (AUTO) 0 % (0-10); HEMATOCRIT 33 % (35-52); LYMPHOCYTES # (AUTO) 33.5 10^3/uL (1.0-4.0); LYMPHOCYTES % (AUTO) 91 % (12-44); MEAN CORPUSCULAR HEMOGLOBIN 39 pg (25-34); MEAN CORPUSCULAR HGB CONC 33 g/dL (32-36); MEAN CORPUSCULAR VOLUME 118 fL (80-99); MEAN PLATELET VOLUME 11.1 fL (9.0-12.2); MONOCYTES # (AUTO) 0.3 10^3/uL (0.0-1.0); MONOCYTES % (AUTO) 1 % (0-12); NEUTROPHILS # (AUTO) 2.7 10^3/uL (1.8-7.8); NEUTROPHILS % (AUTO) 8 % (42-75); PLATELET COUNT 125 10^3/uL (130-400)
[2021-11-16 09:58] LABS: WHITE BLOOD COUNT 36.8 10^3/uL (4.3-11.0)
[2021-11-16 10:10] LABS: ALBUMIN 3.7 GM/DL (3.2-4.5); BILIRUBIN,TOTAL 0.4 MG/DL (0.1-1.0); CALCIUM 8.9 MG/DL (8.5-10.1); CREATININE SERUM 1.03 MG/DL (0.60-1.30); POTASSIUM 4.6 MMOL/L (3.6-5.0); TOTAL PROTEIN 6.2 GM/DL (6.4-8.2)
[~2021-11-22] MED LIST changes: +ACETAMINOPHEN 500 MG TAB (TYLENOL) PO SCH; +HEParin (CENTRAL IV FLUSH) 500 UNIT/5 ML SYR IV PRN; +IMMU GLOBULIN,GAMMA 100 ML IV SCH; +IMMU GLOBULIN,GAMMA 200 ML IV SCH; +diphenhydrAMINE 25 MG TAB (BENADRYL) PO SCH
== END | disposition home or self-care (01) ==
LOC: ONC 10-25 12:03
PROVIDERS: ATTEND Internal Medicine Hematology & Oncology
DX: Z51.12 Encounter for antineoplastic immunotherapy (principal); C50.912 Malignant neoplasm of unspecified site of left female breast; D80.1 Nonfamilial hypogammaglobulinemia; E03.9 Hypothyroidism, unspecified; M81.0 Age-related osteoporosis without current pathological fracture; Z85.3 Personal history of malignant neoplasm of breast; Z87.81 Personal history of (healed) traumatic fracture
CPT/HCPCS: 36415; 80053; 82784; 85025; 96365; 99213; J1569

== ENCOUNTER 2021-12-13 13:45 | Outpatient (RCR) | payer MEDICARE ==
[~2021-12-13 13:45] MED LIST changes: -ACETAMINOPHEN 500 MG TAB (TYLENOL) PO SCH; -HEParin (CENTRAL IV FLUSH) 500 UNIT/5 ML SYR IV PRN; -IMMU GLOBULIN,GAMMA 100 ML IV SCH; -IMMU GLOBULIN,GAMMA 200 ML IV SCH; -diphenhydrAMINE 25 MG TAB (BENADRYL) PO SCH
== END 2021-12-13 14:35 | disposition home or self-care (01) ==
PROVIDERS: ATTEND Family Medicine
DX: M54.6 Pain in thoracic spine (principal); M41.9 Scoliosis, unspecified; R53.1 Weakness; Z87.311 Personal history of (healed) other pathological fracture

== ENCOUNTER 2021-12-20 09:27 | Outpatient (RCR) | payer MEDICARE ==
[2021-12-14 09:33] LABS: BASOPHILS % (AUTO) 0 % (0-10); EOSINOPHILS % (AUTO) 0 % (0-10); HEMOGLOBIN 9.6 g/dL (11.5-16.0); LYMPHOCYTES # (AUTO) 36.3 10^3/uL (1.0-4.0); LYMPHOCYTES % (AUTO) 94 % (12-44); PLATELET COUNT 100 10^3/uL (130-400)
[2021-12-14 09:35] LABS: BASOPHILS # (AUTO) 0.1 10^3/uL (0.0-0.1); EOSINOPHILS # (AUTO) 0.1 10^3/uL (0.0-0.3); HEMATOCRIT 30 % (35-52); MEAN CORPUSCULAR HEMOGLOBIN 38 pg (25-34); MEAN CORPUSCULAR HGB CONC 32 g/dL (32-36); MEAN CORPUSCULAR VOLUME 118 fL (80-99); MEAN PLATELET VOLUME 11.6 fL (9.0-12.2); MONOCYTES # (AUTO) 0.2 10^3/uL (0.0-1.0); MONOCYTES % (AUTO) 1 % (0-12); NEUTROPHILS % (AUTO) 5 % (42-75)
[2021-12-14 09:40] LABS: WHITE BLOOD COUNT 38.7 10^3/uL (4.3-11.0)
[2021-12-14 09:48] LABS: ALBUMIN 3.6 GM/DL (3.2-4.5); BILIRUBIN,TOTAL 0.5 MG/DL (0.1-1.0); CALCIUM 8.7 MG/DL (8.5-10.1); CREATININE SERUM 1.08 MG/DL (0.60-1.30); POTASSIUM 4.8 MMOL/L (3.6-5.0); TOTAL PROTEIN 5.6 GM/DL (6.4-8.2)
[~2021-12-20 09:27] MED LIST changes: +ACETAMINOPHEN 500 MG TAB (TYLENOL) PO SCH; +HEParin (CENTRAL IV FLUSH) 500 UNIT/5 ML SYR IV PRN; +IMMU GLOBULIN,GAMMA 100 ML IV SCH; +IMMU GLOBULIN,GAMMA 200 ML IV SCH; +diphenhydrAMINE 25 MG TAB (BENADRYL) PO SCH
== END 2021-12-20 16:21 | disposition home or self-care (01) ==
LOC: ONC 09:27
PROVIDERS: ATTEND Internal Medicine Hematology & Oncology
DX: C50.912 Malignant neoplasm of unspecified site of left female breast (principal); C91.10 Chronic lymphocytic leukemia of B-cell type not having achieved remission; D80.1 Nonfamilial hypogammaglobulinemia; E03.9 Hypothyroidism, unspecified; M81.0 Age-related osteoporosis without current pathological fracture
CPT/HCPCS: 36415; 80053; 82784; 85025; 99213

== ENCOUNTER 2021-12-26 06:59 | Day surgery (SDC) | payer MEDICARE ==
[~2021-12-26] VITALS: Ht 160 cm; Wt 53.6 kg
[2021-12-26] VITALS (12 sets, daily range): BP systolic 130–176; BP diastolic 69–94
[~2021-12-26 06:59] MED LIST changes: -ACETAMINOPHEN 500 MG TAB (TYLENOL) PO SCH; -HEParin (CENTRAL IV FLUSH) 500 UNIT/5 ML SYR IV PRN; -IMMU GLOBULIN,GAMMA 100 ML IV SCH; -IMMU GLOBULIN,GAMMA 200 ML IV SCH; -diphenhydrAMINE 25 MG TAB (BENADRYL) PO SCH
[2021-12-26 07:35] LABS: ABSOLUTE RETIC # 44 10e9/uL (24-90); BASOPHILS # (AUTO) 0.1 10^3/uL (0.0-0.1); BASOPHILS % (AUTO) 0 % (0-10); EOSINOPHILS # (AUTO) 0.1 10^3/uL (0.0-0.3); EOSINOPHILS % (AUTO) 0 % (0-10); HEMATOCRIT 29 % (35-52); HEMOGLOBIN 9.6 g/dL (11.5-16.0); LYMPHOCYTES # (AUTO) 35.3 10^3/uL (1.0-4.0); LYMPHOCYTES % (AUTO) 94 % (12-44); MEAN CORPUSCULAR HEMOGLOBIN 38 pg (25-34); MEAN CORPUSCULAR HGB CONC 33 g/dL (32-36); MEAN CORPUSCULAR VOLUME 118 fL (80-99); MEAN PLATELET VOLUME 11.9 fL (9.0-12.2); MONOCYTES # (AUTO) 0.2 10^3/uL (0.0-1.0); MONOCYTES % (AUTO) 1 % (0-12); NEUTROPHILS # (AUTO) 1.8 10^3/uL (1.8-7.8); NEUTROPHILS % (AUTO) 5 % (42-75); PLATELET COUNT 86 10^3/uL (130-400); RETICULOCYTE % 1.77 % (0.50-2.40)
[2021-12-26] MEDS ORDERED: NS IV 1000 ML 1,000 ML IV STA (07:59)
[2021-12-26] MEDS ORDERED: MIDAZOLAM 2 MG/2 ML (VERSED) VIAL IVP ONE (08:00)
[2021-12-26] MEDS ORDERED: fentaNYL INJ 100 MCG/2 ML AMP IVP ONE (08:00)
[2021-12-26] MEDS ORDERED: LIDOCAINE 1% INJ 50 ML (XYLOCAINE) VIAL ONE (08:11)
[2021-12-26] MEDS ORDERED: NS IV 1000 ML 1,000 ML ONE (08:12)
[2021-12-26] MEDS ORDERED: fentaNYL INJ 100 MCG/2 ML AMP ONE (08:12)
[2021-12-26] MEDS ORDERED: MIDAZOLAM 2 MG/2 ML (VERSED) VIAL ONE (08:12)
[2021-12-26] MEDS ORDERED: LIDOCAINE 1% INJ 50 ML (XYLOCAINE) VIAL IJ ONE (08:15)
[2021-12-26 08:29] LABS: WHITE BLOOD COUNT 37.6 10^3/uL (4.3-11.0)
[2021-12-26 08:30] LABS: ANISOCYTOSIS MODERATE; ATYPICAL LYMPHOCYTES 10 %; ELLIPT/OVALOCYTES MODERATE; EOSINOPHILS % (MANUAL) 2 %; LYMPHOCYTES % (MANUAL) 71 %; NEUTROPHILS % (MANUAL) 12 %; SCHISTOCYTES SLIGHT
[2021-12-26 08:31] LABS: INR 1.1 (0.8-1.4); PROTHROMBIN TIME PATIENT 14.4 SEC (12.2-14.7)
[2021-12-26] MEDS ORDERED: CHOL500050 PO (09:09)
[2021-12-26] MEDS ORDERED: IBUP-2185 PO (09:11)
--- NOTE | 2021-12-26 09:23 | Pre-Op Note & Conscious Sedat ---
Pre-Operative Progress Note Date of Available H&P: Dec 26, 2021 Date H&P Reviewed: Dec 26, 2021 Time H&P Reviewed: 08:00 Pre-Op Diagnosis: leukemia Conscious Sedation Pre-Proced Time 08:00 ASA Score 2 For ASA 3 and 4: Consider anesthesia and medical clearance. Also, for patients with a history of failed moderate sedation consider anesthesia. Airway Lungs Heart ASA score ASA 1: a normal healthy patient ASA 2: a patient with a mild systemic disease (mid diabetes, controlled hypertension, obesity ASA 3: a patient with a severe systemic disease that limits activity (angina, COPD, prior Myocardial infarction) ASA 4: a patient with an incapacitating disease that is a constant threat to life (CHF, renal failure) ASA 5: a moribund patient not expected to survive 24 hrs. (ruptured aneurysm) ASA 6: a declared brain- patient whose organs are being harvested. For emergent operations, add the letter E after the classification Mallampati Classification Grade 2 Sedation Plan Analgesia, Amnesia, Plan communicated to team members, Discussed options with patient/fam, Discussed risks with patient/fam The patient is an appropriate candidate to undergo the planned procedure, sedation, and anesthesia. The patient immediately re-assessed prior to indication. SARA RANDLE MD Dec 26, 2021 09:23
[2021-12-26] MEDS ORDERED: HYDROcodone/APAP 5 MG/325 MG (LORTAB) TAB PO PRN (09:45)
--- NOTE | 2021-12-26 10:09 | Diagnostic Imaging Report ---
INDICATION: Chronic lymphoid leukemia. Patient presents for CT-guided bone marrow aspiration and biopsy. FINDINGS: The patient was brought to the CT suite and placed on the table in the prone position. Axial imaging through the pelvis was performed to evaluate for an appropriate entry site. The skin of low back was prepped and draped in the usual sterile fashion. A small amount of 1% lidocaine was utilized for local anesthesia. The procedure was performed utilizing conscious sedation with Radiology nursing and constant patient monitoring. The patient was given a total of 50 mg of fentanyl intravenously. The total procedure time was approximately 5 minutes. A bone marrow needle was advanced and placed with its tip along the posterior cortex of the right iliac bone. The needle was advanced through the cortex utilizing a bone marrow drill. Two bone marrow aspirates were then obtained. Next, the bone marrow drill was utilized to obtain a bone marrow core sample. [place] were removed and hemostasis was obtained using manual compression. The patient tolerated the procedure well and left the Department in stable condition. IMPRESSION: Successful CT-guided bone marrow aspiration and core biopsy utilizing conscious sedation. Pathology results are currently pending. Dictated by: Dictated on workstation # [id number]
== END 2021-12-26 11:25 | disposition home or self-care (01) ==
LOC: RAD 06:59 → SDC 09:09 → RAD 11:25
PROVIDERS: ATTEND Internal Medicine Hematology & Oncology
DX: C91.90 Lymphoid leukemia, unspecified not having achieved remission (principal); C83.00 Small cell B-cell lymphoma, unspecified site; Z85.3 Personal history of malignant neoplasm of breast; D80.1 Nonfamilial hypogammaglobulinemia; D64.9 Anemia, unspecified; E03.9 Hypothyroidism, unspecified; M81.0 Age-related osteoporosis without current pathological fracture; Z79.82 Long term (current) use of aspirin; D69.6 Thrombocytopenia, unspecified
CPT/HCPCS: 36415; 38222; 77012; 85007; 85027; 85045; 85055; 85610; 85730

== ENCOUNTER 2022-01-10 10:24 | Outpatient (RCR) | payer MEDICARE ==
[~2022-01-10 10:24] MED LIST changes: +ACETAMINOPHEN 500 MG TAB (TYLENOL) PO SCH; +CHOL500050 PO; +HEParin (CENTRAL IV FLUSH) 500 UNIT/5 ML SYR IV PRN; +IBUP-2185 PO; +IMMU GLOBULIN,GAMMA 100 ML IV SCH; +IMMU GLOBULIN,GAMMA 200 ML IV SCH; +diphenhydrAMINE 25 MG TAB (BENADRYL) PO SCH
[2022-01-10 12:23] LABS: BASOPHILS % (AUTO) 0 % (0-10); EOSINOPHILS % (AUTO) 0 % (0-10); MEAN CORPUSCULAR VOLUME 122 fL (80-99); MONOCYTES % (AUTO) 1 % (0-12)
[2022-01-10 12:25] LABS: BASOPHILS # (AUTO) 0.1 10^3/uL (0.0-0.1); EOSINOPHILS # (AUTO) 0.1 10^3/uL (0.0-0.3); HEMATOCRIT 28 % (35-52); LYMPHOCYTES # (AUTO) 37.8 10^3/uL (1.0-4.0); LYMPHOCYTES % (AUTO) 94 % (12-44); MEAN CORPUSCULAR HEMOGLOBIN 39 pg (25-34); MEAN CORPUSCULAR HGB CONC 32 g/dL (32-36); MEAN PLATELET VOLUME 12.8 fL (9.0-12.2); MONOCYTES # (AUTO) 0.3 10^3/uL (0.0-1.0); NEUTROPHILS # (AUTO) 1.9 10^3/uL (1.8-7.8); NEUTROPHILS % (AUTO) 5 % (42-75); PLATELET COUNT 86 10^3/uL (130-400)
[2022-01-10 12:29] LABS: WHITE BLOOD COUNT 40.2 10^3/uL (4.3-11.0)
[2022-01-10 12:44] LABS: BILIRUBIN,TOTAL 0.5 MG/DL (0.1-1.0); CALCIUM 8.8 MG/DL (8.5-10.1); CREATININE SERUM 1.07 MG/DL (0.60-1.30); POTASSIUM 4.9 MMOL/L (3.6-5.0); TOTAL PROTEIN 5.9 GM/DL (6.4-8.2)
== END 2022-01-23 14:03 | disposition home or self-care (01) ==
LOC: ONC 10:24
PROVIDERS: ATTEND Internal Medicine Hematology & Oncology
DX: Z51.12 Encounter for antineoplastic immunotherapy (principal); Z45.2 Encounter for adjustment and management of vascular access device; C50.912 Malignant neoplasm of unspecified site of left female breast; C91.10 Chronic lymphocytic leukemia of B-cell type not having achieved remission; D80.1 Nonfamilial hypogammaglobulinemia; E03.9 Hypothyroidism, unspecified; M81.0 Age-related osteoporosis without current pathological fracture
CPT/HCPCS: 36415; 80053; 85025; 96365; 96366; 96375; 99213; J1569

== ENCOUNTER → 2022-01-16 | Outpatient (CLI) | payer MEDICARE ==
[~2022-01-16] MED LIST changes: -ACETAMINOPHEN 500 MG TAB (TYLENOL) PO SCH; +GADOTERATE 0.5 MMOL/ML (CLARISCAN) 15 ML VIAL IV ONE; -HEParin (CENTRAL IV FLUSH) 500 UNIT/5 ML SYR IV PRN; -IMMU GLOBULIN,GAMMA 100 ML IV SCH; -IMMU GLOBULIN,GAMMA 200 ML IV SCH; -diphenhydrAMINE 25 MG TAB (BENADRYL) PO SCH
--- NOTE | 2022-01-16 12:20 | Diagnostic Imaging Report ---
Technique: Multiplanar and multisequence MRI of the thoracic spine was performed with and without contrast. COMPARISON: 02/19/2021. Reason for exam: History of breast cancer. Prior kyphoplasty is in the thoracic spine. Back pain. FINDINGS: Prior kyphoplasty changes are seen at the T6, T7, and T9 vertebral bodies. There is chronic appearing height loss in the T4, T8, and T10 vertebral bodies. There is a small amount of bone marrow edema in the superior endplate of T10 with suggestion of a fracture line in the T10 vertebral body. Increasing kyphosis of the thoracic spine is seen centered at the T8-T9 level. No bony retropulsion is identified. No abnormal enhancement is seen. No suspicious focal osseous lesions. The intrinsic signal within the thoracic spinal cord is normal. No evidence of cord expansion. No epidural collections are seen. Multilevel degenerative changes are present in the thoracic spine with posterior disc bulges, facet hypertrophy, and buckling of the ligamentum flavum. These are most prominent at the T10-T11 level with moderate spinal canal stenosis and moderate bilateral foraminal stenosis. The paraspinal soft tissues are unremarkable. IMPRESSION: 1. Suggestion of acute on chronic compression deformity at the T10 vertebral body. There is approximately 80% height loss. No bony retropulsion. 2. Prior kyphoplasty is at T6, T7, and T9. Chronic height loss is seen at the T4 and T8 levels. 3. Worsening kyphosis of the thoracic spine since the prior exam. 4. Degenerative changes in the thoracic spine, greatest at T10-T11. 5. No abnormal enhancement in the thoracic spine. No abnormal signal seen within the thoracic spinal cord. Dictated by: Dictated on workstation # [id number]
--- NOTE | 2022-01-16 12:34 | Diagnostic Imaging Report ---
PROCEDURE: MRI lumbar spine with and without contrast. TECHNIQUE: Multiplanar, multisequence MRI of the lumbar spine was performed with and without contrast. INDICATION: History of breast cancer. Low back pain. COMPARISON: 10/17/2021. FINDINGS: 5 lumbar type vertebral bodies are visualized with the last well-formed disc space designated L5-S1. No acute fracture or dislocation is seen in the lumbar spine. There is right convexity curvature of the thoracolumbar spine. There is lower than expected signal within the vertebral bodies. No focal suspicious osseous lesion. No abnormal enhancement is visualized. The conus terminates at the L1 level. No masses are seen associated with the conus or nerve roots of the cauda equina. No epidural collections are identified. Multilevel degenerative changes are seen in the lumbar spine with disc bulges, facet hypertrophy, and buckling of the ligamentum flavum. T12-L1: No significant spinal canal or foraminal stenosis. L1-L2: Facet hypertrophy and buckling of the ligamentum flavum results in mild spinal canal narrowing and uzzj-mp-wdropccs bilateral foraminal narrowing. L2-L3: Broad-based disc bulge, facet hypertrophy, and buckling of the ligamentum flavum results in qkmi-mv-oncvwzjv spinal canal narrowing and mild right and dpam-ak-hvxflykq left foraminal narrowing. L3-L4: Broad-based disc bulge, facet hypertrophy, and buckling of the ligamentum flavum results in moderate spinal canal stenosis and moderate right and mild left foraminal stenosis. L4-L5: Broad-based disc bulge, facet hypertrophy, and buckling of the ligamentum flavum results in uqlh-se-kgoouzwm spinal canal narrowing and moderate bilateral foraminal stenosis. L5-S1: Broad-based disc bulge, facet hypertrophy, and buckling of the ligamentum flavum results in mild spinal canal narrowing and cguo-nj-zkwsiuqk right and moderate left foraminal stenosis. Paravertebral soft tissues are unremarkable. IMPRESSION: 1. No acute fracture or dislocation in the lumbar spine. No abnormal enhancement. 2. Multilevel degenerative changes throughout the lumbar spine, greatest at L3-L4 and L4-L5. 3. Lower than expected signal throughout the vertebral bodies of the lumbar spine, suggestive of marrow replacement. No suspicious focal osseous lesions are identified. Dictated by: Dictated on workstation # [id number]
== END ==
LOC: RAD 08:26
PROVIDERS: ATTEND Internal Medicine Hematology & Oncology
DX: C91.90 Lymphoid leukemia, unspecified not having achieved remission (principal); M40.294 Other kyphosis, thoracic region; M47.814 Spondylosis without myelopathy or radiculopathy, thoracic region; Z80.3 Family history of malignant neoplasm of breast
CPT/HCPCS: 72157; 72158

== ENCOUNTER → 2022-02-22 | Outpatient (RCR) | payer MEDICARE ==
[2022-02-18 13:29] LABS: BASOPHILS % (AUTO) 0 % (0-10); LYMPHOCYTES % (AUTO) 96 % (12-44); MONOCYTES % (AUTO) 0 % (0-12)
[2022-02-18 13:31] LABS: EOSINOPHILS # (AUTO) 0.2 10^3/uL (0.0-0.3); EOSINOPHILS % (AUTO) 0 % (0-10); HEMATOCRIT 24 % (35-52); LYMPHOCYTES # (AUTO) 106.3 10^3/uL (1.0-4.0); MEAN CORPUSCULAR HEMOGLOBIN 38 pg (25-34); MEAN CORPUSCULAR HGB CONC 30 g/dL (32-36); MEAN CORPUSCULAR VOLUME 127 fL (80-99); MEAN PLATELET VOLUME 13.2 fL (9.0-12.2); MONOCYTES # (AUTO) 0.3 10^3/uL (0.0-1.0); NEUTROPHILS # (AUTO) 3.3 10^3/uL (1.8-7.8); NEUTROPHILS % (AUTO) 3 % (42-75); PLATELET COUNT 49 10^3/uL (130-400)
[2022-02-18 13:35] LABS: WHITE BLOOD COUNT 110.4 10^3/uL (4.3-11.0)
[2022-02-18 13:43] LABS: ALBUMIN 3.7 GM/DL (3.2-4.5); BILIRUBIN,TOTAL 0.7 MG/DL (0.1-1.0); CALCIUM 8.7 MG/DL (8.5-10.1); CREATININE SERUM 1.36 MG/DL (0.60-1.30); POTASSIUM 4.4 MMOL/L (3.6-5.0); TOTAL PROTEIN 5.7 GM/DL (6.4-8.2)
[2022-02-21 09:18] LABS: BASOPHILS % (AUTO) 0 % (0-10); EOSINOPHILS % (AUTO) 0 % (0-10); LYMPHOCYTES % (AUTO) 97 % (12-44); MONOCYTES # (AUTO) 0.5 10^3/uL (0.0-1.0); MONOCYTES % (AUTO) 0 % (0-12); NEUTROPHILS % (AUTO) 3 % (42-75)
[2022-02-21 09:20] LABS: EOSINOPHILS # (AUTO) 0.2 10^3/uL (0.0-0.3); HEMATOCRIT 24 % (35-52); LYMPHOCYTES # (AUTO) 133.9 10^3/uL (1.0-4.0); MEAN CORPUSCULAR HEMOGLOBIN 36 pg (25-34); MEAN CORPUSCULAR HGB CONC 28 g/dL (32-36); MEAN CORPUSCULAR VOLUME 128 fL (80-99); MEAN PLATELET VOLUME 12.7 fL (9.0-12.2); NEUTROPHILS # (AUTO) 3.4 10^3/uL (1.8-7.8); PLATELET COUNT 57 10^3/uL (130-400)
[2022-02-21 09:25] LABS: HEMOGLOBIN 6.9 g/dL (11.5-16.0); WHITE BLOOD COUNT 138.3 10^3/uL (4.3-11.0)
[~2022-02-22] MED LIST changes: +ACETAMINOPHEN 500 MG TAB (TYLENOL) ONE; +DENO60DI SQ; -GADOTERATE 0.5 MMOL/ML (CLARISCAN) 15 ML VIAL IV ONE; +IBRU420T PO; +IMMU GLOBULIN,GAMMA 100 ML IV SCH; +IMMU GLOBULIN,GAMMA 200 ML IV SCH; +NS IV 500 ML 500 ML IV SCH; +NS IV 500 ML 500 ML ONE; +diphenhydrAMINE 25 MG TAB (BENADRYL) PO ONE
== END | disposition home or self-care (01) ==
LOC: ONC 01-24 14:42
PROVIDERS: ATTEND Internal Medicine Hematology & Oncology
DX: C91.10 Chronic lymphocytic leukemia of B-cell type not having achieved remission (principal); C50.912 Malignant neoplasm of unspecified site of left female breast; D80.1 Nonfamilial hypogammaglobulinemia; E03.9 Hypothyroidism, unspecified; M81.0 Age-related osteoporosis without current pathological fracture
CPT/HCPCS: 36415; 36430; 80053; 82274; 85025; 86850; 86900; 86901; 86920; 96365; 96366; 96375; 99213; J1569

== ENCOUNTER 2022-02-27 06:22 | Outpatient (CLI) | payer MEDICARE ==
[~2022-02-27] VITALS: Ht 160 cm; Wt 53.1 kg
[~2022-02-27 06:22] MED LIST changes: -ACETAMINOPHEN 500 MG TAB (TYLENOL) ONE; -DENO60DI SQ; -IBRU420T PO; -IMMU GLOBULIN,GAMMA 100 ML IV SCH; -IMMU GLOBULIN,GAMMA 200 ML IV SCH; -NS IV 500 ML 500 ML IV SCH; -NS IV 500 ML 500 ML ONE; -diphenhydrAMINE 25 MG TAB (BENADRYL) PO ONE
[2022-02-27] MEDS ORDERED: DENO60DI SQ (12:51)
[2022-02-27] MEDS ORDERED: IBRU420T PO (12:51)
== END 2022-02-27 13:17 | disposition home or self-care (01) ==
LOC: PREOP 06:22
PROVIDERS: ATTEND Surgery
DX: Z01.818 Encounter for other preprocedural examination (principal)

== ENCOUNTER 2022-03-11 09:23 | Day surgery (SDC) | payer MEDICARE ==
[~2022-03-11] VITALS: Ht 167.4 cm; Wt 53.1 kg
[~2022-03-11 09:23] MED LIST changes: +DENO60DI SQ; +IBRU420T PO
[2022-03-11] MEDS ORDERED: LACTATED RINGERS 1,000 ML IV STA (09:29)
[2022-03-11] MEDS ORDERED: HURRICAINE EXT TUBE (BENZOCAINE) XX PRN (09:30)
[2022-03-11 09:47] VITALS: BP 109/58
--- NOTE | 2022-03-11 10:29 | Progress Note-Pre Operative ---
Pre-Operative Progress Note Date of Available H&P: Feb 26, 2022 Date H&P Reviewed: Mar 11, 2022 Time H&P Reviewed: 10:26 History & Physical: H&P Reviewed, Patient Examed, No changes noted Pre-Operative Diagnosis: +occult blood, anemia DAFNE OSORIO DO Mar 11, 2022 10:29
[2022-03-11] MEDS ORDERED: PROPOFOL INJECTION 50 ML IV ONE (10:59)
[2022-03-11 11:45] VITALS: BP 132/58
[2022-03-11 11:50] VITALS: BP 132/58
--- NOTE | 2022-03-11 12:01 | Progress Note-Post Operative ---
Post-Operative Progess Note Surgeon (s)/Food Service Clerk (s) Surgeon DAFNE OSORIO DO Food Service Clerk: Gonzalo Mccurdy, MSIII Pre-Operative Diagnosis +occult blood, anemia Post-Operative Diagnosis Gastritis with bleeding Hiatal hernia Polyps diverticula hemorrhoids Procedure & Operative Findings Date of Procedure 03/11/22 Procedure Performed/Findings EGD with biopsy Colonoscopy with hot biopsy PROCEDURE NOTE: After informed consent was obtained, the patient was brought to the endoscopy suite, placed in bed in left lateral decubitus position. She was administered IV sedation by the UNIVERSITY PROFESSOR who then monitored vitals the entire time, heart rate, blood pressure and pulse ox and the scope was inserted down the mouth through the esophagus into the stomach. On the way down, noted some mild esophagitis, took a picture, pushed into the stomach, pushed past the antrum into the duodenum. Duodenum looked good. Pulled back, noted gastritis with some blood and did a biopsy of the antrum. Then retroflexed the scope, saw a small hiatal hernia, took a picture of this and then pulled the scope into the GE junction, took another picture of the hiatal hernia and then did a biopsy of the GE junction. Pushed the scope back into the stomach, suctioned all the air out of the stomach. At this point pulled the scope up the esophagus and out the mouth. Switched camera, switched gloves, went down below and started the colonoscopy. Pushed all the way into about 140 cm to get all the way to cecum, took a picture of the appendiceal orifice, noted the ileocecal valve and then slowly withdrew the scope, insufflating to look circumferentially at the abbott starting in the cecum, up the ascending colon to the hepatic flexure, then down the transverse colon to the splenic flexure, into the descending colon and down into the sigmoid. Saw some diverticula and took a picture. I also found small polyp here and in the rectum which I removed with hot biopsy. Finally into the rectum, retroflexed in the rectal vault, saw some minimal internal hemorrhoids and took a picture of them. The patient tolerated the procedure and she recovered in the endoscopy suite. Recommended for repeat colonoscopy in 5 years Anesthesia Type IV sedation by UNIVERSITY PROFESSOR Estimated Blood Loss Estimated blood loss (mL): scant Specimens/Packing Specimens Removed antral bx GE jxn bx sigmoid polyp rectal polyp DAFNE OSORIO DO Mar 11, 2022 12:00
--- NOTE | 2022-03-11 12:02 | Endoscopy Discharge Instruct ---
Endo Procedure/Findings Findings 1.: Gastritis 2.: Hiatal Hernia 3.: Polyp 4.: Diverticulosis, Internal Hemorrhoids Discharge Instructions - Activity: You might feel a little sleepy until tomorrow. This is due to the medicine you received to relax you. Until tomorrow, you should: NOT drive a car, operate machinery or power tools. NOT drink any alcoholic beverages. NOT make any important decisions or sign importortant papers. Do not return to work until tomorrow, unless otherwise instructed. Resume previous activities tomorrow. Diet: Start by taking liquids. If you tolerate liquids, advance to solid food. 1.: EGD in 3 years 2.: Colonscopy in 5 years Notify Physician - If you experience excessive bleeding, unusual abdominal pain, fever, or chest pain, contact your doctor immediately. DAFNE OSORIO DO Mar 11, 2022 12:02
[2022-03-11 12:12] VITALS: BP 132/58
--- NOTE | 2022-03-11 13:37 | Anesthesia-General Post-Op ---
MAC Patient Condition Mental Status/LOC: Same as Preop Cardiovascular: Satisfactory Nausea/Vomiting: Absent Respiratory: Satisfactory Pain: Controlled Complications: Absent Post Op Complications Complications None Follow Up Care/Instructions Patient Instructions None needed. Anesthesiology Discharge Order Discharge Order Patient was doing well after the procedure with no complaints, stable vital signs, no apparent adverse anesthesia problems. No complications reported per nursing. COLEEN VARGHESE DO Mar 11, 2022 13:37
== END 2022-03-11 12:27 | disposition home or self-care (01) ==
LOC: ENDO 09:23
PROVIDERS: ATTEND Surgery
DX: K29.71 Gastritis, unspecified, with bleeding (principal); K44.9 Diaphragmatic hernia without obstruction or gangrene; K63.5 Polyp of colon; K62.1 Rectal polyp; K57.30 Diverticulosis of large intestine without perforation or abscess without bleeding; K64.8 Other hemorrhoids; K22.70 Barrett's esophagus without dysplasia; K31.9 Disease of stomach and duodenum, unspecified; D50.9 Iron deficiency anemia, unspecified; C91.Z0 Other lymphoid leukemia not having achieved remission; Z85.3 Personal history of malignant neoplasm of breast; Z79.899 Other long term (current) drug therapy

== ENCOUNTER 2022-03-21 09:42 | Outpatient (RCR) | payer MEDICARE ==
[2022-02-28 09:34] LABS: BASOPHILS % (AUTO) 0 % (0-10); EOSINOPHILS % (AUTO) 0 % (0-10); MEAN CORPUSCULAR HGB CONC 30 g/dL (32-36)
[2022-02-28 09:36] LABS: EOSINOPHILS # (AUTO) 0.2 10^3/uL (0.0-0.3); HEMATOCRIT 27 % (35-52); LYMPHOCYTES # (AUTO) 97.7 10^3/uL (1.0-4.0); LYMPHOCYTES % (AUTO) 96 % (12-44); MEAN CORPUSCULAR HEMOGLOBIN 35 pg (25-34); MEAN CORPUSCULAR VOLUME 119 fL (80-99); MEAN PLATELET VOLUME 13.3 fL (9.0-12.2); MONOCYTES # (AUTO) 0.6 10^3/uL (0.0-1.0); MONOCYTES % (AUTO) 1 % (0-12); NEUTROPHILS # (AUTO) 3.2 10^3/uL (1.8-7.8); NEUTROPHILS % (AUTO) 3 % (42-75)
[2022-02-28 09:41] LABS: PLATELET COUNT 48 10^3/uL (130-400)
[2022-03-21 11:13] LABS: BASOPHILS % (AUTO) 0 % (0-10); EOSINOPHILS % (AUTO) 0 % (0-10); NEUTROPHILS % (AUTO) 5 % (42-75)
[2022-03-21 11:15] LABS: EOSINOPHILS # (AUTO) 0.2 10^3/uL (0.0-0.3); HEMATOCRIT 23 % (35-52); LYMPHOCYTES # (AUTO) 70.5 10^3/uL (1.0-4.0); LYMPHOCYTES % (AUTO) 93 % (12-44); MEAN CORPUSCULAR HEMOGLOBIN 36 pg (25-34); MEAN CORPUSCULAR HGB CONC 31 g/dL (32-36); MEAN CORPUSCULAR VOLUME 118 fL (80-99); MONOCYTES # (AUTO) 1.3 10^3/uL (0.0-1.0); MONOCYTES % (AUTO) 2 % (0-12); NEUTROPHILS # (AUTO) 3.4 10^3/uL (1.8-7.8); PLATELET COUNT 46 10^3/uL (130-400)
[2022-03-21 11:27] LABS: HEMOGLOBIN 6.9 g/dL (11.5-16.0); WHITE BLOOD COUNT 75.6 10^3/uL (4.3-11.0)
[2022-03-21 11:42] LABS: ALBUMIN 3.9 GM/DL (3.2-4.5); BILIRUBIN,TOTAL 0.6 MG/DL (0.1-1.0); CALCIUM 9.9 MG/DL (8.5-10.1); CREATININE SERUM 1.36 MG/DL (0.60-1.30); POTASSIUM 4.9 MMOL/L (3.6-5.0); TOTAL PROTEIN 6.4 GM/DL (6.4-8.2)
[2022-03-21] MEDS ORDERED: NS IV 500 ML 500 ML IV SCH (12:00)
== END 2022-03-25 | disposition home or self-care (01) ==
LOC: ONC 09:42
PROVIDERS: ATTEND Internal Medicine Hematology & Oncology
DX: C91.10 Chronic lymphocytic leukemia of B-cell type not having achieved remission (principal); C50.912 Malignant neoplasm of unspecified site of left female breast; D80.1 Nonfamilial hypogammaglobulinemia; E03.9 Hypothyroidism, unspecified; M81.0 Age-related osteoporosis without current pathological fracture; M47.814 Spondylosis without myelopathy or radiculopathy, thoracic region; Z98.890 Other specified postprocedural states
CPT/HCPCS: 85025; G0463; 36415; 36430; 80053; 86850; 86900; 86901; 86920; 99213

== ENCOUNTER → 2022-04-05 | Outpatient (CLI) | payer MEDICARE ==
[2022-04-05 10:42] VITALS: BP 129/42
== END ==
LOC: SDC 09:57
PROVIDERS: ATTEND Internal Medicine Hematology & Oncology
DX: D64.9 Anemia, unspecified (principal)
CPT/HCPCS: 36430

== ENCOUNTER 2022-04-17 10:11 | Emergency (ER) | payer MEDICARE ==
[~2022-04-17] VITALS: Ht 160 cm; Wt 47.6 kg
--- NOTE | 2022-04-17 11:22 | ED Lower Extremity ---
General Chief Complaint: Lower Extremity Stated Complaint: LT THIGH PAIN | BACK PAIN | LEUKEMIA Nursing Triage Note: PT PRESENTS TO ED VIA POV FROM HOME WITH COMPLAINTS OF L UPPER THIGH PAIN AND WEAKNESS X 1 WEEK. PT HAS HX OF LUEKEMIA/LYMPHOMA- REPORTS SHE STRUGGLES WITH ANEMIA, GENERALIZED WEAKNESS, WEIGHT LOSS-DECREASED APPETITE. Source: patient, family Exam Limitations: no limitations History of Present Illness Date Seen by Provider: Apr 17, 2022 Time Seen by Provider: 11:32 Initial Comments This is a well-appearing 86-year-old female who presented to the ER with complaints of left upper thigh pain that is chronic in nature but has worsened over the past week. States that over the past week she has required the use of a walker which she has not needed previously. Does have a history of leukemia, anemia, generalized weakness, osteopenia. She has had increased weight loss and decreased appetite over the past year, she currently sees Dr. BERMUDEZ with the [facility] and is currently working with her to manage side effects of her oncology regimen. She had appointment 2 days ago on Friday and has follow-up next week to reevaluate. Denies any fall, trauma. Denies numbness, t ingling, loss of bowel or bladder control. Has been taking Lortabs prescribed by Dr. BERMUDEZ with some relief. Allergies and Home Medications Allergies Coded Allergies: No Known Drug Allergies (Unverified , 07/05/15) Patient Home Medication List Home Medication List Reviewed: Yes Acetaminophen (Acetaminophen) 325 Mg Tablet, 650 MG PO Q4H PRN for FEVER Prescribed by: DAFNE WALKER on 07/14/15 0843 Calcium Carbonate/Vitamin D3 (Calcium 500 + D Tablet) 1 Each Tablet, 1 TAB PO DAILY @ 1200, (Reported) Entered as Reported by: REBECCA GREENE on 07/05/15 1342 Cholecalciferol (Vitamin D3) (Vitamin D3) 125 Mcg (5000 Unit) Capsule, 125 MCG PO DAILY, (Reported) Entered as Reported by: RAND BUSTAMANTE on 12/26/21 0909 Denosumab (Prolia) 60 Mg/Ml Disp.syrin, 60 MG SQ UD, (Reported) Entered as Reported by: JAVIER AIKEN on 02/27/22 1251 Ibrutinib (Imbruvica) 420 Mg Tablet, 420 MG PO DAILY, (Reported) Entered as Reported by: JAVIER AIKEN on 02/27/22 1251 Levothyroxine Sodium (Levothyroxine Sodium) 100 Mcg Tablet, 100 MCG PO DAILY, (Reported) Entered as Reported by: JM DONALDSON on 07/05/15 0955 Oxycodone HCl/Acetaminophen (Oxycodone-Acetaminophen 5-325) 5 Mg-325 Mg Tablet, 1 EACH PO Q6H PRN for PAIN-MODERATE Prescribed by: LIS CORRIGAN on 04/17/22 1428 Review of Systems Constitutional: see HPI Past Axbxuwo-Elvtfi-Obzpel Hx Patient Social History Tobacco Use?: No Substance use?: No Alcohol Use?: No Pt feels they are or have been: No Immunizations Up To Date Tetanus Booster (TDap): More than 5yrs First/Initial COVID19 Vaccinat: JULY 2019 Second COVID19 Vaccination Emilio: JULY 2019 Third COVID19 Vaccination Date: JULY 2019 Seasonal Allergies Seasonal Allergies: No Past Medical History Surgery/Hospitalization HX: LUEKEMIA/LYMPHOMA, HYPOTHYROIDISM, BREAST CA-MASTECTOMY Surgeries: Yes Breast Respiratory: No Currently Using CPAP: No Currently Using BIPAP: No Cardiac: No Neurological: No Reproductive Disorders: No Genitourinary: No Gastrointestinal: No Musculoskeletal: Yes Fractures Endocrine: Yes Hypothyroidsim HEENT: Yes Cataract Loss of Vision: Denies Cancer: Yes Breast, Lymphoma Did You Recieve Any Treatments: Yes What Type of Treatment Did You: Surgical Intervention Psychosocial: No Integumentary: No Blood Disorders: No Adverse Reaction/Blood Tranf: No Family Medical History Cardiovascular disease 19 FATHER Cataracts G8 SISTER Deafness or hearing loss 19 MOTHER Dementia Neoplasm 19 MOTHER G8 SISTER Physical Exam Vital Signs Vital Signs - First Documented 04/17/22 10:44 Temp 36.3 Pulse 90 Resp 16 B/P (MAP) 138/61 (86) Pulse Ox 96 Capillary Refill : Less Than 3 Seconds Height, Weight, BMI Height: 5'7.00" Weight: 133lbs. 5.0oz. 60.513919dw; 18.00 BMI Method:Stated General Appearance: WD/WN, no apparent distress HEENT: PERRL/EOMI, normal ENT inspection, pharynx normal Neck: full range of motion, supple, normal inspection Cardiovascular: regular rate, rhythm, no murmur Respiratory: lungs clear, normal breath sounds, no respiratory distress, no accessory muscle use Back: normal inspection, no vertebral tenderness Hips: bilateral hip non-tender, bilateral hip normal inspection, bilateral hip normal range of motion, bilateral hip no evidence of injury Legs: bilateral leg non-tender, bilateral leg normal inspection, bilateral leg normal range of motion, bilateral leg no evidence of injury Knees: bilateral knee normal inspection; right knee bone tenderness; bilateral knee joint effusion (negative); right knee pain, right knee soft tissue tenderne ss Ankles: bilateral ankle non-tender, bilateral ankle normal inspection, bilateral ankle normal range of motion, bilateral ankle no evidence of injury Neurologic/Tendon: normal sensation, normal motor functions, normal tendon functions Neurologic/Psychiatric: no motor/sensory deficits, alert, normal mood/affect, oriented x 3 Skin: normal color, warm/dry Progress/Results/Core Measures Results/Orders My Orders Orders - LIS CORRIGAN APRN Hydrocodone/Apap 5/325 Tablet (Lortab 5 (04/17/22 11:30) Pelvis With Left Hip 2-3 Views (04/17/22 11:39) Ct Extremity Lower Left Wo (04/17/22 12:12) Ns Iv 1000 Ml (Sodium Chloride 0.9%) (04/17/22 13:00) Ct Pelvis Wo (04/17/22 12:54) Medications Given in ED Current Medications Medications Dose Ordered Sig/Yesi Route Start Time Stop Time Status Last Admin Dose Admin Acetaminophen/ Hydrocodone Bitart 1 ea ONCE ONCE PO 04/17/22 11:30 04/17/22 11:31 DC 04/17/22 11:23 1 EA Sodium Chloride 1,000 ml @ 0 mls/hr Q0M ONCE IV 04/17/22 13:00 04/17/22 13:01 DC 04/17/22 13:10 0 MLS/HR Vital Signs/I&O 04/17/22 04/17/22 10:44 15:15 Temp 36.3 Pulse 90 106 Resp 16 18 B/P (MAP) 138/61 (86) 137/56 Pulse Ox 96 98 Blood Pressure Mean: 86 Progress Progress Note : Progress Note Patient examined and in no acute distress. States that pain is tolerable when she is at rest, worse with movement and especially with weightbearing. We will go ahead and obtain dedicated imaging of her left hip and pelvis. Could have a pathological fracture based on history of leukemia and osteopenia. Has no other systemic symptoms. Departure Impression Primary Impression: Multiple closed stable fractures of ramus of left pubis Additional Impression: Closed left ischial fracture Disposition: 01 HOME, SELF-CARE Condition: Improved Departure-Patient Inst. Decision time for Depature: 14:26 Referrals: EUGENIO MORGAN MD (PCP) Primary Care Physician Patient Instructions: Acute Pain, Adult (DC) Add. Discharge Instructions: Plan: 1. Follow up with your doctor next week. 2. Do not use your hydrocodone, take oxycodone instead for the pain you can take this every 6 hours as needed. This may cause you to feel dizzy or lightheaded, make sure somebody is around you if you get up to ambulate. 3. Weight bearing as tolerated with her walker, take plenty of breaks with a wheelchair, use wheel chair for extended lengths of activity. 4. May use ice 20 minutes at a time to affected area for discomfort, you can also try heat 20 minutes at a time. 5. Return to the ER if you have any increased or uncontrolled pain, any other new or concerning symptoms. All discharge instructions reviewed with patient and/or family. Voiced understanding. Scripts Oxycodone HCl (Oxycodone HCl) 5 Mg Tablet 5 MG PO Q6H PRN for PAIN-MILD (1-4), #15 TAB 0 Refills Prov: LIS CORRIGAN APRN 04/17/22 LIS CORRIGAN APRN Apr 17, 2022 11:22
[2022-04-17] MEDS ORDERED: HYDROcodone/APAP 5 MG/325 MG (LORTAB) TAB PO ONE (11:30)
--- NOTE | 2022-04-17 12:10 | Diagnostic Imaging Report ---
INDICATION: Left hip pain with no known discrete injury. FINDINGS: AP pelvis and two-view left hip showed no articular collapse, fracture or bony destructive process. No abnormal periosteal reaction. There are positional limitations to evaluating the left superior-inferior pubic rami. No acute abnormality appreciable. Impression: No acute appearing abnormality. Dictated by: Dictated on workstation # [id number]
[2022-04-17] MEDS ORDERED: NS IV 1000 ML 1,000 ML IV ONE (13:00)
--- NOTE | 2022-04-17 13:21 | Diagnostic Imaging Report ---
Exam: CT left hip without contrast. Date: April 17, 2022. Indication: 86-year-old female, left hip pain. Difficulty bearing weight. Comparison: Pelvic left hip radiographs April 17, 2022. Technique: Axial CT images of the left hip were obtained without contrast. Coronal and sagittal reformats were obtained and provided. All CT scans use one or more of the following dose optimizing techniques: automated exposure control, MA and/or KvP adjustment based on patient size and exam type or iterative reconstruction. . Findings: There is a minimally displaced fracture involving the base of the left superior pubic ramus. There is adjacent periosteal reaction. There is no bony callus bridging. There is a comminuted mildly displaced fracture of the left inferior pubic ramus. There is also some adjacent periosteal reaction without bony callus bridging. There is also a comminuted acute mildly displaced fracture involving the left ischium. There is no adjacent periosteal reaction. There is no bony callus bridging. There is cortical bone loss in the lucent lesion of the right pubic bones near the pubic symphysis on coronal image 11 which measures 9 x 7 mm in size. Left hip is not dislocated. There is no joint space loss of the left hip, osteophyte formation, or subchondral cystic change. There is no sizable fluid collection or hematoma. Impression: 1. Minimally displaced fracture involving the base of the left superior pubic ramus which may be early subacute in age. 2. Comminuted mildly displaced fracture of the left inferior pubic ramus which also may be early subacute in age. 3. Comminuted very mildly displaced fracture of the left ischium which may be acute. 4. Absence of cortex with associated lucent lesion of the right pubic bones near the pubic symphysis. This does raise concern for potential metastatic lesion or myeloma. Dictated by: Dictated on workstation # [id number]
--- NOTE | 2022-04-17 13:34 | Diagnostic Imaging Report ---
Procedure: CT pelvis without contrast. Technique: Multiple contiguous axial images were obtained through the pelvis without the use of intravenous contrast. Sagittal and coronal reformations were performed. Auto Exposure Controls were utilized during the CT exam to meet ALARA standards for radiation dose reduction. Date: April 17, 2022. Indication: 86-year-old female, pelvic and left hip pain. Comparison: Radiographs of the pelvis and left hip April 17, 2022. Findings: There is a comminuted mildly displaced fracture of the left inferior pubic ramus with periosteal reaction and no bony callus bridging. There is a comminuted minimally displaced fracture of the left ischium without associated periosteal reaction. There is a minimally displaced fracture of the base of the right superior pubic ramus with periosteal reaction and no bony callus bridging. There is an area of absence of the cortex of the right pubic bones near the pubic symphysis with associated lucent lesion measuring approximately 7 x 5 mm in size. This is concerning for potential myelomatous lesion or metastatic disease. Lymphoma would also be considered. There is an intramedullary dasha in the right proximal femur as well as dynamic fixation screw. The hips are not dislocated. There is no pronounced joint space loss of either hip, osteophyte formation, or subchondral cystic change. There is severe disc height loss at L4-L5. There are bilateral facet degenerative changes at L4-L5 and L5-S1. There is asymmetric posterior disc height loss at L5-S1. There is no evidence of sizable fluid collection or hematoma. There is no identified free fluid in the pelvis. Impression: 1. Comminuted minimally displaced fracture of the left technetium is likely acute in age without periosteal reaction or bony callus bridging. 2. Comminuted mildly displaced fracture of the left inferior pubic ramus and minimally displaced fracture of the base of the left superior pubic ramus which are likely early subacute in age given presence of periosteal reaction without bony callus bridging. 3. Lucent lesion with absence of the cortex involving the right pubic bone involving the pubic symphysis concerning for malignant lesion such as myeloma, metastatic disease, or lymphoma. Dictated by: Dictated on workstation # [id number]
[2022-04-17] MEDS ORDERED: OXYC1TAB11 PO (14:28)
[2022-04-17 15:15] VITALS: BP 137/56
[2022-04-17] MEDS ORDERED: OXYC5TAB PO (16:13)
== END 2022-04-17 15:15 | disposition home or self-care (01) ==
LOC: EDUNIT# 10:11 → ER 10:13
DX: M84.454A Pathological fracture, pelvis, initial encounter for fracture (principal)
CPT/HCPCS: 72192; 73700

== ENCOUNTER → 2022-04-24 | Outpatient (RCR) | payer MEDICARE ==
[2022-04-04 14:21] LABS: BASOPHILS % (AUTO) 0 % (0-10); EOSINOPHILS % (AUTO) 0 % (0-10); MONOCYTES % (AUTO) 2 % (0-12); NEUTROPHILS % (AUTO) 6 % (42-75)
[2022-04-04 14:23] LABS: EOSINOPHILS # (AUTO) 0.2 10^3/uL (0.0-0.3); HEMATOCRIT 21 % (35-52); LYMPHOCYTES # (AUTO) 51.9 10^3/uL (1.0-4.0); LYMPHOCYTES % (AUTO) 91 % (12-44); MEAN CORPUSCULAR HEMOGLOBIN 35 pg (25-34); MEAN CORPUSCULAR HGB CONC 30 g/dL (32-36); MEAN CORPUSCULAR VOLUME 114 fL (80-99); MEAN PLATELET VOLUME 12.4 fL (9.0-12.2); MONOCYTES # (AUTO) 1.3 10^3/uL (0.0-1.0); NEUTROPHILS # (AUTO) 3.5 10^3/uL (1.8-7.8); PLATELET COUNT 46 10^3/uL (130-400)
[2022-04-04 14:29] LABS: WHITE BLOOD COUNT 57.3 10^3/uL (4.3-11.0)
[2022-04-04 14:30] LABS: HEMOGLOBIN 6.3 g/dL (11.5-16.0)
[2022-04-04 14:52] LABS: ALBUMIN 3.7 GM/DL (3.2-4.5); BILIRUBIN,TOTAL 0.5 MG/DL (0.1-1.0); CALCIUM 9.9 MG/DL (8.5-10.1); CREATININE SERUM 1.52 MG/DL (0.60-1.30); POTASSIUM 4.4 MMOL/L (3.6-5.0); TOTAL PROTEIN 5.7 GM/DL (6.4-8.2)
[2022-04-05 09:24] LABS: BASOPHILS % (AUTO) 0 % (0-10); EOSINOPHILS % (AUTO) 0 % (0-10); MEAN CORPUSCULAR VOLUME 115 fL (80-99)
[2022-04-05 09:25] LABS: EOSINOPHILS # (AUTO) 0.2 10^3/uL (0.0-0.3); HEMATOCRIT 22 % (35-52); LYMPHOCYTES # (AUTO) 59.6 10^3/uL (1.0-4.0); LYMPHOCYTES % (AUTO) 91 % (12-44); MEAN CORPUSCULAR HEMOGLOBIN 35 pg (25-34); MEAN CORPUSCULAR HGB CONC 30 g/dL (32-36); MEAN PLATELET VOLUME 12.6 fL (9.0-12.2); MONOCYTES # (AUTO) 1.4 10^3/uL (0.0-1.0); MONOCYTES % (AUTO) 2 % (0-12); NEUTROPHILS # (AUTO) 3.8 10^3/uL (1.8-7.8); NEUTROPHILS % (AUTO) 6 % (42-75); PLATELET COUNT 53 10^3/uL (130-400)
[2022-04-05 09:29] LABS: WHITE BLOOD COUNT 65.4 10^3/uL (4.3-11.0)
[2022-04-05 09:30] LABS: HEMOGLOBIN 6.7 g/dL (11.5-16.0)
[2022-04-05 10:37] VITALS: BP 129/42
[2022-04-05 10:52] VITALS: BP 113/83
[2022-04-05 13:40] VITALS: BP 129/52
[2022-04-15 13:37] LABS: BASOPHILS % (AUTO) 0 % (0-10); EOSINOPHILS # (AUTO) 0.2 10^3/uL (0.0-0.3); EOSINOPHILS % (AUTO) 0 % (0-10); HEMATOCRIT 24 % (35-52); HEMOGLOBIN 7.5 g/dL (11.5-16.0); LYMPHOCYTES # (AUTO) 48.8 10^3/uL (1.0-4.0); LYMPHOCYTES % (AUTO) 88 % (12-44); MEAN CORPUSCULAR HEMOGLOBIN 34 pg (25-34); MEAN CORPUSCULAR HGB CONC 31 g/dL (32-36); MEAN CORPUSCULAR VOLUME 109 fL (80-99); MEAN PLATELET VOLUME 11.8 fL (9.0-12.2); MONOCYTES # (AUTO) 2.1 10^3/uL (0.0-1.0); MONOCYTES % (AUTO) 4 % (0-12); NEUTROPHILS # (AUTO) 3.9 10^3/uL (1.8-7.8); NEUTROPHILS % (AUTO) 7 % (42-75); PLATELET COUNT 47 10^3/uL (130-400)
[2022-04-15 13:40] LABS: WHITE BLOOD COUNT 55.4 10^3/uL (4.3-11.0)
[2022-04-15 13:58] LABS: ALBUMIN 4.2 GM/DL (3.2-4.5); BILIRUBIN,TOTAL 0.8 MG/DL (0.1-1.0); CALCIUM 10.7 MG/DL (8.5-10.1); CREATININE SERUM 1.88 MG/DL (0.60-1.30); POTASSIUM 4.7 MMOL/L (3.6-5.0); TOTAL PROTEIN 6.6 GM/DL (6.4-8.2)
[~2022-04-24] MED LIST changes: +ACETAMINOPHEN 500 MG TAB (TYLENOL) PO SCH; +HEParin (CENTRAL IV FLUSH) 500 UNIT/5 ML SYR IV PRN; +IMMU GLOBULIN,GAMMA 100 ML IV SCH; +IMMU GLOBULIN,GAMMA 200 ML IV SCH; +NS IV 500 ML 500 ML IV SCH; +OXYC1TAB11 PO; +OXYC5TAB PO; +diphenhydrAMINE 25 MG TAB (BENADRYL) PO SCH
[2022-04-24 14:29] LABS: BASOPHILS % (AUTO) 0 % (0-10); EOSINOPHILS % (AUTO) 0 % (0-10); LYMPHOCYTES # (AUTO) 36.7 X 10^3 (1.0-4.0); LYMPHOCYTES % (AUTO) 88 % (12-44); MEAN CORPUSCULAR HEMOGLOBIN 35 pg (25-34); MEAN CORPUSCULAR HGB CONC 32 g/dL (32-36); MEAN CORPUSCULAR VOLUME 109 fL (80-99); MEAN PLATELET VOLUME 10.9 fL (9.0-12.2); MONOCYTES # (AUTO) 0.9 X 10^3 (0.0-1.0); MONOCYTES % (AUTO) 2 % (0-12); NEUTROPHILS # (AUTO) 3.9 X 10^3 (1.8-7.8); NEUTROPHILS % (AUTO) 9 % (42-75); PLATELET COUNT 57 10^3/uL (130-400)
[2022-04-24 14:35] LABS: WHITE BLOOD COUNT 41.8 10^3/uL (4.3-11.0)
[2022-04-24 14:36] LABS: HEMATOCRIT 20 % (35-52); HEMOGLOBIN 6.4 g/dL (11.5-16.0)
[2022-04-24 14:46] LABS: ALBUMIN 3.6 GM/DL (3.2-4.5); BILIRUBIN,TOTAL 0.8 MG/DL (0.1-1.0); CALCIUM 10.2 MG/DL (8.5-10.1); CREATININE SERUM 1.3 MG/DL (0.60-1.30); POTASSIUM 4.3 MMOL/L (3.6-5.0); TOTAL PROTEIN 6.1 GM/DL (6.4-8.2)
[2022-04-25 10:45] VITALS: BP 121/48
[2022-04-25 11:05] VITALS: BP 118/44
[2022-04-25 13:28] VITALS: BP 144/61
== END | disposition home or self-care (01) ==
LOC: ONC 04-04 13:30
PROVIDERS: ATTEND Internal Medicine Hematology & Oncology
DX: Z51.12 Encounter for antineoplastic immunotherapy (principal); C91.10 Chronic lymphocytic leukemia of B-cell type not having achieved remission; C50.912 Malignant neoplasm of unspecified site of left female breast; D80.1 Nonfamilial hypogammaglobulinemia; E03.9 Hypothyroidism, unspecified; M81.0 Age-related osteoporosis without current pathological fracture; M47.814 Spondylosis without myelopathy or radiculopathy, thoracic region; Z98.890 Other specified postprocedural states
CPT/HCPCS: 36415; 80053; 82728; 82784; 83540; 83550; 85025; 86850; 86900; 86901; 86920; 96365; 96366; 99213; J1569

== ENCOUNTER 2022-04-25 08:53 | Outpatient (CLI) | payer MEDICARE ==
[~2022-04-25] VITALS: Ht 160 cm; Wt 47.6 kg
[~2022-04-25 08:53] MED LIST changes: -ACETAMINOPHEN 500 MG TAB (TYLENOL) PO SCH; -HEParin (CENTRAL IV FLUSH) 500 UNIT/5 ML SYR IV PRN; -IMMU GLOBULIN,GAMMA 100 ML IV SCH; -IMMU GLOBULIN,GAMMA 200 ML IV SCH; -NS IV 500 ML 500 ML IV SCH; -diphenhydrAMINE 25 MG TAB (BENADRYL) PO SCH
[2022-04-25 09:15] VITALS: BP 132/63
[2022-04-25] MEDS ORDERED: DENOSUMAB 60 MG/1 ML (PROLIA) SQ SCH (09:15)
== END 2022-04-25 14:00 | disposition home or self-care (01) ==
LOC: SDC 08:53
PROVIDERS: ATTEND Nurse Practitioner Family
DX: M81.0 Age-related osteoporosis without current pathological fracture (principal)
CPT/HCPCS: 96372

== ENCOUNTER 2022-04-25 08:59 | Outpatient (CLI) | payer MEDICARE ==
[~2022-04-25] VITALS: Ht 160 cm; Wt 48.0 kg
[2022-04-25 13:58] VITALS: BP 151/54
== END 2022-04-25 14:00 | disposition home or self-care (01) ==
LOC: SDC 08:59
PROVIDERS: ATTEND Internal Medicine Hematology & Oncology
DX: D50.9 Iron deficiency anemia, unspecified (principal)
CPT/HCPCS: 36430

== ENCOUNTER → 2022-05-15 | Outpatient (CLI) | payer MEDICARE | LOC: WOUNDCARE 10:23 | PROVIDERS: ATTEND Family Medicine | DX: C91.10 Chronic lymphocytic leukemia of B-cell type not having achieved remission (principal); I96 Gangrene, not elsewhere classified; L89.150 Pressure ulcer of sacral region, unstageable; D69.59 Other secondary thrombocytopenia; D46.4 Refractory anemia, unspecified; M62.81 Muscle weakness (generalized); Z92.21 Personal history of antineoplastic chemotherapy; Z79.52 Long term (current) use of systemic steroids | CPT/HCPCS: 11042; 85652; 86141; 87070; 87205; A6212; G0463; 36415; 87077 ==

== ENCOUNTER 2022-05-21 10:28 | Outpatient (RCR) | payer MEDICARE ==
[2022-04-05 13:40] VITALS: BP 129/52
[2022-05-01 14:33] LABS: BASOPHILS % (AUTO) 0 % (0-10); EOSINOPHILS % (AUTO) 0 % (0-10); HEMATOCRIT 23 % (35-52); HEMOGLOBIN 7.1 g/dL (11.5-16.0); LYMPHOCYTES # (AUTO) 42.2 10^3/uL (1.0-4.0); LYMPHOCYTES % (AUTO) 88 % (12-44); MEAN CORPUSCULAR HEMOGLOBIN 33 pg (25-34); MEAN CORPUSCULAR HGB CONC 31 g/dL (32-36); MEAN CORPUSCULAR VOLUME 109 fL (80-99); MEAN PLATELET VOLUME 11.8 fL (9.0-12.2); MONOCYTES # (AUTO) 0.3 10^3/uL (0.0-1.0); MONOCYTES % (AUTO) 1 % (0-12); NEUTROPHILS % (AUTO) 11 % (42-75)
[2022-05-01 14:35] LABS: PLATELET COUNT 75 10^3/uL (130-400)
[2022-05-01 14:36] LABS: WHITE BLOOD COUNT 47.7 10^3/uL (4.3-11.0)
[2022-05-01 14:53] LABS: ALBUMIN 3.8 GM/DL (3.2-4.5); BILIRUBIN,TOTAL 0.6 MG/DL (0.1-1.0); CALCIUM 8.1 MG/DL (8.5-10.1); CREATININE SERUM 1.18 MG/DL (0.60-1.30); TOTAL PROTEIN 6.1 GM/DL (6.4-8.2)
[2022-05-08 15:04] LABS: BASOPHILS % (AUTO) 0 % (0-10); EOSINOPHILS % (AUTO) 0 % (0-10); HEMATOCRIT 21 % (35-52); LYMPHOCYTES # (AUTO) 33.9 X 10^3 (1.0-4.0); LYMPHOCYTES % (AUTO) 87 % (12-44); MEAN CORPUSCULAR HEMOGLOBIN 34 pg (25-34); MEAN CORPUSCULAR HGB CONC 31 g/dL (32-36); MEAN CORPUSCULAR VOLUME 111 fL (80-99); MEAN PLATELET VOLUME 11.1 fL (9.0-12.2); MONOCYTES # (AUTO) 0.4 X 10^3 (0.0-1.0); MONOCYTES % (AUTO) 1 % (0-12); NEUTROPHILS # (AUTO) 4.8 X 10^3 (1.8-7.8); NEUTROPHILS % (AUTO) 12 % (42-75); PLATELET COUNT 72 10^3/uL (130-400)
[2022-05-08 15:06] LABS: HEMOGLOBIN 6.3 g/dL (11.5-16.0); WHITE BLOOD COUNT 39.2 10^3/uL (4.3-11.0)
[2022-05-08 15:27] LABS: ALBUMIN 3.7 GM/DL (3.2-4.5); BILIRUBIN,TOTAL 0.8 MG/DL (0.1-1.0); CALCIUM 7.9 MG/DL (8.5-10.1); CREATININE SERUM 0.88 MG/DL (0.60-1.30); POTASSIUM 4.9 MMOL/L (3.6-5.0); TOTAL PROTEIN 6.1 GM/DL (6.4-8.2)
[2022-05-15 09:30] LABS: BASOPHILS % (AUTO) 0 % (0-10); EOSINOPHILS % (AUTO) 0 % (0-10); HEMOGLOBIN 7.3 g/dL (11.5-16.0); NEUTROPHILS % (AUTO) 12 % (42-75)
[2022-05-15 09:31] LABS: BASOPHILS # (AUTO) 0.1 10^3/uL (0.0-0.1); HEMATOCRIT 23 % (35-52); LYMPHOCYTES # (AUTO) 31.2 10^3/uL (1.0-4.0); LYMPHOCYTES % (AUTO) 87 % (12-44); MEAN CORPUSCULAR HEMOGLOBIN 33 pg (25-34); MEAN CORPUSCULAR HGB CONC 31 g/dL (32-36); MEAN CORPUSCULAR VOLUME 105 fL (80-99); MEAN PLATELET VOLUME 10.9 fL (9.0-12.2); MONOCYTES # (AUTO) 0.2 10^3/uL (0.0-1.0); MONOCYTES % (AUTO) 0 % (0-12); NEUTROPHILS # (AUTO) 4.3 10^3/uL (1.8-7.8); PLATELET COUNT 79 10^3/uL (130-400)
[2022-05-15 09:34] LABS: WHITE BLOOD COUNT 35.8 10^3/uL (4.3-11.0)
[2022-05-15 09:57] LABS: ALBUMIN 3.6 GM/DL (3.2-4.5); BILIRUBIN,TOTAL 0.7 MG/DL (0.1-1.0); CALCIUM 8.1 MG/DL (8.5-10.1); CREATININE SERUM 0.9 MG/DL (0.60-1.30); POTASSIUM 4.8 MMOL/L (3.6-5.0); TOTAL PROTEIN 5.9 GM/DL (6.4-8.2)
[~2022-05-21 10:28] MED LIST changes: +NS IV 500 ML 500 ML IV SCH; +NS IV 500 ML 500 ML ONE
[2022-05-21 10:59] LABS: BASOPHILS % (AUTO) 0 % (0-10); EOSINOPHILS % (AUTO) 0 % (0-10); HEMATOCRIT 24 % (35-52); HEMOGLOBIN 7.4 g/dL (11.5-16.0); MEAN CORPUSCULAR HGB CONC 31 g/dL (32-36)
[2022-05-21 11:01] LABS: BASOPHILS # (AUTO) 0.1 10^3/uL (0.0-0.1); LYMPHOCYTES # (AUTO) 33.2 10^3/uL (1.0-4.0); LYMPHOCYTES % (AUTO) 84 % (12-44); MEAN CORPUSCULAR HEMOGLOBIN 33 pg (25-34); MEAN CORPUSCULAR VOLUME 108 fL (80-99); MEAN PLATELET VOLUME 11.8 fL (9.0-12.2); MONOCYTES # (AUTO) 0.1 10^3/uL (0.0-1.0); MONOCYTES % (AUTO) 0 % (0-12); NEUTROPHILS # (AUTO) 6.2 10^3/uL (1.8-7.8); NEUTROPHILS % (AUTO) 15 % (42-75); PLATELET COUNT 103 10^3/uL (130-400)
[2022-05-21 11:02] LABS: WHITE BLOOD COUNT 39.8 10^3/uL (4.3-11.0)
== END 2022-05-25 | disposition home or self-care (01) ==
LOC: ONC 10:28
PROVIDERS: ATTEND Internal Medicine Hematology & Oncology
DX: C91.10 Chronic lymphocytic leukemia of B-cell type not having achieved remission (principal); C50.912 Malignant neoplasm of unspecified site of left female breast; D80.1 Nonfamilial hypogammaglobulinemia; E03.9 Hypothyroidism, unspecified; M81.0 Age-related osteoporosis without current pathological fracture; M47.814 Spondylosis without myelopathy or radiculopathy, thoracic region; Z98.890 Other specified postprocedural states
CPT/HCPCS: 80053; 85025; G0463; 36415; 36430; 83615; 86850; 86900; 86901; 86920; 99213

== ENCOUNTER → 2022-05-22 | Outpatient (CLI) | payer MEDICARE ==
[~2022-05-22] MED LIST changes: -NS IV 500 ML 500 ML IV SCH; -NS IV 500 ML 500 ML ONE
== END ==
LOC: WOUNDCARE 11:29
PROVIDERS: ATTEND Family Medicine
DX: D46.4 Refractory anemia, unspecified (principal); D69.59 Other secondary thrombocytopenia; C91.10 Chronic lymphocytic leukemia of B-cell type not having achieved remission; M62.81 Muscle weakness (generalized); L89.154 Pressure ulcer of sacral region, stage 4; B95.61 Methicillin susceptible Staphylococcus aureus infection as the cause of diseases classified elsewhere; B96.20 Unspecified Escherichia coli [E. coli] as the cause of diseases classified elsewhere; I96 Gangrene, not elsewhere classified; R64 Cachexia; Z79.52 Long term (current) use of systemic steroids; Z92.21 Personal history of antineoplastic chemotherapy
CPT/HCPCS: 87070; 87205; A6212; A6260; G0463; 99213

== ENCOUNTER → 2022-05-24 | Outpatient (CLI) | payer MEDICARE ==
[~2022-05-24] MED LIST changes: +GADOTERATE 0.5 MMOL/ML (CLARISCAN) 15 ML VIAL IV ONE
--- NOTE | 2022-05-24 13:56 | Diagnostic Imaging Report ---
Procedure: MRI pelvis with and without contrast. Technique: Multiplanar, multisequence MRI of the pelvis was performed with and without contrast. Date: May 24, 2022. Indication: 86-year-old female, pressure ulcer in the region of the sacrum/coccyx for a couple of weeks. Evaluation for osteomyelitis or abscess. The patient has history of breast cancer and leukemia. Comparison: CT pelvis April 17, 2022. Findings: There does appear to be diffusely low T1 marrow signal which is similar in signal intensity to skeletal muscle. There is no identified acute fracture. There is hardware in the right proximal femur with associated hardware related artifact. There is a soft tissue ulcer posteriorly which nears the posterior margin of the coccyx perhaps best demonstrated on axial T1 sequence series 2 image 26 and adjacent sequential images. There is no clearly identified bone loss at this location. There are diffuse marrow signal changes do somewhat limit evaluation for osteomyelitis. There is no convincing and definite evidence of osteomyelitis. There is no identified focal fluid collection or abscess. There is no sacroiliac joint effusion or large hip joint effusion. There are some limitations for evaluation of muscles and tendons given sequences performed included field of view of imaging. Impression: 1. Diffusely low T1 marrow signal which is similar in signal intensity to skeletal muscle. This is concerning for a diffuse marrow infiltrating or replacing process and could relate to provided history of leukemia or breast cancer. This also can be seen with anemia and marrow reconversion. 2. Soft tissue ulcer posteriorly which nearly directly contacts the coccyx without convincing evidence of osteomyelitis myelitis. Sensitivity for evaluation of osteomyelitis myelitis is somewhat limited given the diffuse marrow signal abnormalities. 3. No identified focal fluid collection or abscess. Dictated by: Dictated on workstation # [id number]
== END ==
LOC: RAD 12:00
PROVIDERS: ATTEND Family Medicine
DX: L89.154 Pressure ulcer of sacral region, stage 4 (principal); D46.4 Refractory anemia, unspecified; D69.59 Other secondary thrombocytopenia; C91.10 Chronic lymphocytic leukemia of B-cell type not having achieved remission; M62.81 Muscle weakness (generalized); B95.62 Methicillin resistant Staphylococcus aureus infection as the cause of diseases classified elsewhere; B96.20 Unspecified Escherichia coli [E. coli] as the cause of diseases classified elsewhere; R64 Cachexia; Z92.21 Personal history of antineoplastic chemotherapy; Z79.52 Long term (current) use of systemic steroids
CPT/HCPCS: 72197

== ENCOUNTER → 2022-05-28 | Outpatient (CLI) | payer MEDICARE ==
[~2022-05-28] MED LIST changes: -GADOTERATE 0.5 MMOL/ML (CLARISCAN) 15 ML VIAL IV ONE; +NS IV 500 ML 500 ML IV SCH
[2022-05-28 13:03] VITALS: BP 101/76
[2022-05-28 13:10] VITALS: BP 101/76
[2022-05-28 13:17] VITALS: BP 102/80
[2022-05-28 14:42] VITALS: BP 111/54
== END ==
LOC: SDC 11:07
PROVIDERS: ATTEND Internal Medicine Hematology & Oncology
DX: D50.9 Iron deficiency anemia, unspecified (principal)
CPT/HCPCS: 36430; 86850; 86900; 86901; 86920; P9016

== ENCOUNTER → 2022-05-29 | Outpatient (CLI) | payer MEDICARE ==
[~2022-05-29] MED LIST changes: -NS IV 500 ML 500 ML IV SCH
== END ==
LOC: WOUNDCARE 14:34
PROVIDERS: ATTEND Family Medicine
DX: I96 Gangrene, not elsewhere classified (principal); C91.10 Chronic lymphocytic leukemia of B-cell type not having achieved remission; D69.59 Other secondary thrombocytopenia; L89.154 Pressure ulcer of sacral region, stage 4; M62.81 Muscle weakness (generalized); B96.20 Unspecified Escherichia coli [E. coli] as the cause of diseases classified elsewhere; Z79.52 Long term (current) use of systemic steroids; Z92.3 Personal history of irradiation
CPT/HCPCS: 11042; A6212; G0463

== ENCOUNTER → 2022-05-30 | Outpatient (CLI) | payer MEDICARE | LOC: LABNPT 14:48 | PROVIDERS: ATTEND Internal Medicine Hematology & Oncology | DX: D64.9 Anemia, unspecified (principal) | CPT/HCPCS: 82274 ==

== ENCOUNTER → 2022-06-05 | Outpatient (CLI) | payer MEDICARE | LOC: WOUNDCARE 10:49 | PROVIDERS: ATTEND Family Medicine | DX: I96 Gangrene, not elsewhere classified (principal); D46.4 Refractory anemia, unspecified; D69.59 Other secondary thrombocytopenia; C91.10 Chronic lymphocytic leukemia of B-cell type not having achieved remission; L89.154 Pressure ulcer of sacral region, stage 4; B96.20 Unspecified Escherichia coli [E. coli] as the cause of diseases classified elsewhere; R64 Cachexia; M46.28 Osteomyelitis of vertebra, sacral and sacrococcygeal region; Z79.52 Long term (current) use of systemic steroids; Z92.21 Personal history of antineoplastic chemotherapy; Z68.1 Body mass index [BMI] 19.9 or less, adult | CPT/HCPCS: A6212; G0463; 99212 ==

== ENCOUNTER 2022-06-10 13:08 | Outpatient (RCR) | payer MEDICARE ==
[2022-04-05 13:40] VITALS: BP 129/52
[2022-05-28 10:23] LABS: BASOPHILS # (AUTO) 0.1 10^3/uL (0.0-0.1); BASOPHILS % (AUTO) 0 % (0-10); EOSINOPHILS # (AUTO) 0.1 10^3/uL (0.0-0.3); EOSINOPHILS % (AUTO) 0 % (0-10); HEMATOCRIT 21 % (35-52); LYMPHOCYTES # (AUTO) 28.9 10^3/uL (1.0-4.0); LYMPHOCYTES % (AUTO) 80 % (12-44); MEAN CORPUSCULAR HEMOGLOBIN 34 pg (25-34); MEAN CORPUSCULAR HGB CONC 30 g/dL (32-36); MEAN CORPUSCULAR VOLUME 113 fL (80-99); MONOCYTES # (AUTO) 0.2 10^3/uL (0.0-1.0); MONOCYTES % (AUTO) 0 % (0-12); NEUTROPHILS % (AUTO) 19 % (42-75); PLATELET COUNT 103 10^3/uL (130-400)
[2022-05-28 10:29] LABS: HEMOGLOBIN 6.4 g/dL (11.5-16.0); WHITE BLOOD COUNT 36.3 10^3/uL (4.3-11.0)
[2022-06-05 10:11] LABS: BASOPHILS % (AUTO) 0 % (0-10)
[2022-06-05 10:13] LABS: BASOPHILS # (AUTO) 0.1 10^3/uL (0.0-0.1); EOSINOPHILS # (AUTO) 0.1 10^3/uL (0.0-0.3); EOSINOPHILS % (AUTO) 0 % (0-10); HEMATOCRIT 27 % (35-52); HEMOGLOBIN 8.1 g/dL (11.5-16.0); LYMPHOCYTES # (AUTO) 23.8 10^3/uL (1.0-4.0); LYMPHOCYTES % (AUTO) 80 % (12-44); MEAN CORPUSCULAR HEMOGLOBIN 34 pg (25-34); MEAN CORPUSCULAR HGB CONC 31 g/dL (32-36); MEAN CORPUSCULAR VOLUME 110 fL (80-99); MEAN PLATELET VOLUME 12.5 fL (9.0-12.2); MONOCYTES # (AUTO) 0.2 10^3/uL (0.0-1.0); MONOCYTES % (AUTO) 1 % (0-12); NEUTROPHILS # (AUTO) 5.4 10^3/uL (1.8-7.8); NEUTROPHILS % (AUTO) 18 % (42-75); PLATELET COUNT 87 10^3/uL (130-400); WHITE BLOOD COUNT 29.6 10^3/uL (4.3-11.0)
[~2022-06-10 13:08] MED LIST changes: +ACETAMINOPHEN 500 MG TAB (TYLENOL) PO SCH; +HEParin (CENTRAL IV FLUSH) 500 UNIT/5 ML SYR IV PRN; +IMMU GLOBULIN,GAMMA 100 ML IV SCH; +IMMU GLOBULIN,GAMMA 200 ML IV SCH; +diphenhydrAMINE 25 MG TAB (BENADRYL) PO SCH
[2022-06-10 13:36] LABS: BASOPHILS # (AUTO) 0.1 10^3/uL (0.0-0.1); BASOPHILS % (AUTO) 0 % (0-10); EOSINOPHILS % (AUTO) 0 % (0-10); MONOCYTES % (AUTO) 1 % (0-12)
[2022-06-10 13:37] LABS: HEMATOCRIT 26 % (35-52); LYMPHOCYTES # (AUTO) 23.3 10^3/uL (1.0-4.0); LYMPHOCYTES % (AUTO) 79 % (12-44); MEAN CORPUSCULAR HEMOGLOBIN 35 pg (25-34); MEAN CORPUSCULAR HGB CONC 31 g/dL (32-36); MEAN CORPUSCULAR VOLUME 112 fL (80-99); MEAN PLATELET VOLUME 12.5 fL (9.0-12.2); MONOCYTES # (AUTO) 0.2 10^3/uL (0.0-1.0); NEUTROPHILS % (AUTO) 20 % (42-75); PLATELET COUNT 89 10^3/uL (130-400); WHITE BLOOD COUNT 29.7 10^3/uL (4.3-11.0)
[2022-06-10 14:05] LABS: ALBUMIN 3.2 GM/DL (3.2-4.5); CALCIUM 8.2 MG/DL (8.5-10.1); CREATININE SERUM 1.22 MG/DL (0.60-1.30); POTASSIUM 4.7 MMOL/L (3.6-5.0); TOTAL PROTEIN 4.9 GM/DL (6.4-8.2)
== END 2022-06-25 | disposition home or self-care (01) ==
LOC: ONC 13:08
PROVIDERS: ATTEND Internal Medicine Hematology & Oncology
DX: Z51.12 Encounter for antineoplastic immunotherapy (principal); C91.10 Chronic lymphocytic leukemia of B-cell type not having achieved remission; C50.912 Malignant neoplasm of unspecified site of left female breast; D80.1 Nonfamilial hypogammaglobulinemia; E03.9 Hypothyroidism, unspecified; M81.0 Age-related osteoporosis without current pathological fracture; M47.814 Spondylosis without myelopathy or radiculopathy, thoracic region; Z98.890 Other specified postprocedural states
CPT/HCPCS: 36415; 80053; 85025; 96365; 96366; 96375; 99213; J1569